=== PATIENT | female | born 1975 | race Caucasian/White ===

== ENCOUNTER 2022-05-09 12:23 | Emergency (ER) | payer OTHER, SELFPAY ==
[2022-05-09 12:34] VITALS: BP 150/93; PULSE 84; RESP 18; TEMP 36.2; O2SAT 100
--- NOTE | 2022-05-09 13:19 | ED.EAR ---
HPI - Ear Problem General Chief complaint: Ear Stated complaint: Ear Pain Time Seen by Provider: 05/09/22 13:19 Source: patient Mode of arrival: ambulatory Limitations: no limitations History of Present Illness HPI Narrative: 47-year-old female presenting for complaint of right ear pain for 2 days. States pain is severe worse with sucking. She denies associated Sinus congestion or pressure, tinnitus, dizziness, nausea, vomiting, fevers or chills. She applied a heating pad and took a muscle relaxer for symptoms. smokes half pack per day. MD Complaint: ear pain Related Data Home Medications Medication Instructions Recorded Confirmed levothyroxine 25 mcg tablet 25 mcg PO DAILY 04/29/19 05/09/22 cyclobenzaprine 10 mg tablet 10 mg PO DAILY 05/09/22 05/09/22 escitalopram oxalate 20 mg tablet 2 mg PO DAILY 05/09/22 05/09/22 losartan 100 1 tablet PO DAILY 05/09/22 05/09/22 mg-hydrochlorothiazide 25 mg tablet verapamil 240 mg tablet,extended 240 mg PO DAILY 05/09/22 05/09/22 release Allergies Allergy/AdvReac Type Severity Reaction Status Date / Time azithromycin Allergy Mild nausea/vomi Verified 05/09/22 13:06 ting meperidine Allergy Unknown Nausea and Verified 05/09/22 13:06 Vomiting Review of Systems Review of Systems: CONSTITUTIONAL: Denies malaise, chills, or fever. EYES: Denies visual changes, redness, or discharge. ENT: Denies rhinorrhea, congestion, sinus pain, and sore throat. Reports ear pain CARDIOVASCULAR: Denies chest pain, palpitations, or edema. RESPIRATORY: Denies cough or dyspnea. GASTROINTESTINAL: Denies abdominal pain, nausea, vomiting, diarrhea SKIN: Denies rash or itching. MUSCULOSKELETAL: Denies myalgia. NEUROLOGIC: Denies headache. All systems reviewed & are unremarkable except as noted in HPI and below PMFSH Past Medical History Medical History Asthma Bronchitis Hypothyroidism Surgical History Surgical History H/O inguinal hernia repair Previous section Comments At time of signature, agree with nursing past medical, surgical, social and family history. There is no relevant family history pertinent to the presenting complaint Exam Narrative: GENERAL: Well-appearing EYES: PERRLA, conjunctivae clear ENT: Nares clear. Mucous membranes moist. left TM pearly ibarra with dull light reflex; right TM with mild erythema and dull light reflex; no tragal tenderness. Oropharynx not erythematous without lesions. Tonsils not enlarged and without exudate, no drooling, no hoarseness, no trismus, uvula midline. NECK: Supple. No lymphadenopathy CHEST: lungs with expiratory wheezes HEART: Regular rate and rhythm. No murmur heard. SKIN: Warm, dry, no rash. NEURO: Alert and oriented x3. PSYCH: Normal mood and affect Course Course Emergency Course: Patient is aware of diagnosis, understands and agrees to treatment plan. Anticipatory guidance given. Patient agrees to follow-up as directed and is aware of reasons to seek care at the emergency department. Portions of this record may have been created with voice recognition software Level of Care: Express Care Visit Vital Signs Vital signs: Vital Signs Temperature 97.1 F L 05/09/22 12:34 Pulse Rate 84 05/09/22 12:34 Respiratory Rate 18 05/09/22 12:34 Blood Pressure 150/93 H 05/09/22 12:34 Pulse Oximetry 100 05/09/22 12:34 Oxygen Delivery Room Air 05/09/22 12:34 Temperature 97.1 F L 05/09/22 12:34 Pulse Rate 84 05/09/22 12:34 Respiratory Rate 18 05/09/22 12:34 Blood Pressure 150/93 H 05/09/22 12:34 Pulse Oximetry 100 05/09/22 12:34 Oxygen Delivery Room Air 05/09/22 12:34 Reviewed Medical Decision Making MDM Narrative Medical decision making narrative: Advised supportive measures and signs/symptoms to go to the ER. Patient is appropriate for outpatient treatment a
== END 2022-05-09 13:30 | disposition home or self-care (01) ==
PROVIDERS: Emergency Provider Nurse Practitioner Family; PCP Internal Medicine
DX: H66.91 Otitis media, unspecified, right ear (principal); J45.909 Unspecified asthma, uncomplicated; E03.9 Hypothyroidism, unspecified
CPT/HCPCS: 99203; G0463

== ENCOUNTER 2022-11-02 11:26 | Emergency (ER) | payer OTHER, SELFPAY ==
--- NOTE | ~2022-11-02 | XR_ITS ---
EXAMINATION: XR chest 2V 11/02/2022 11:51 INDICATION: Cough PROCEDURE: 2 view chest COMPARISON: No prior studies for comparison. FINDINGS: The lungs are clear. The cardiomediastinal silhouette is within normal limits. There are no pleural effusions. There is no pneumothorax suspected. IMPRESSION: 1: NO ACUTE CARDIOPULMONARY DISEASE. Reviewed, dictated and finalized at location B.
[2022-11-02 11:31] VITALS: BP 170/92; PULSE 88; RESP 20; TEMP 36.7; O2SAT 97
--- NOTE | 2022-11-02 11:55 | ED.URI ---
HPI - URI/Sore Throat General Chief Complaint: Upper Respiratory Infection Stated Complaint: Chest Congestin/Cough Time Seen by Provider: 11/02/22 11:55 Source: patient, RN notes reviewed and old records reviewed Mode of arrival: ambulatory Limitations: no limitations History of Present Illness HPI Narrative: 47-year-old female presents to the [facility] with complaints of chest congestion, cough for 1 week. Quit smoking 2 years ago. Wheezing noted. Denies of racing heart. Denies any swelling. Denies chest pain. No swelling. Onset (ago): week(s) (1) Related Data Home Medications Medication Instructions Recorded Confirmed escitalopram oxalate 20 mg tablet 2 mg PO DAILY 05/09/22 11/02/22 albuterol sulfate 90 mcg/actuation 1 puff inhalation DIRECTED 11/02/22 11/02/22 aerosol inhaler Allergies Allergy/AdvReac Type Severity Reaction Status Date / Time azithromycin Allergy Mild nausea/vomi Verified 11/02/22 11:45 ting meperidine Allergy Unknown Nausea and Verified 11/02/22 11:45 Vomiting Review of Systems Review of Systems: All systems reviewed & are unremarkable except as noted in HPI and below Constitutional: Constitutional: Reports no additional constitutional complaints Eyes: Eyes: Reports no additional eye complaints ENT: Reports system reviewed and no additional complaints, except as documented Cardiovascular: Cardiovascular: Reports no additional cardiovascular complaints, Denies chest pain and Denies dyspnea Respiratory: Respiratory: Reports as per HPI, Reports chest congestion, Reports cough and Reports dyspnea Gastrointestinal: Gastrointestinal: Reports no additional gastrointestinal complaints, Denies abdominal pain, Denies nausea and Denies vomiting Musculoskeletal: Musculoskeletal: Reports no additional musculoskeletal complaints Integumentary/Breasts: Skin/Breast: Reports system reviewed and no additional complaints, except as docu Neurologic: Reports system reviewed and no additional complaints, except as documented Psychiatric: Psychiatric: Reports no additional psychiatric complaints Allergic/Immunologic: Allergic/Immunologic: Reports no additional allergic/immunologic complaints [facility] Past Medical History Medical History Asthma Bronchitis Hypothyroidism Surgical History Surgical History H/O inguinal hernia repair Previous section Comments At the time of my signature, I reviewed and agree with the nursing past medical, surgical, social, and family history. There is no relevant family history pertinent to the patient complaint. Exam Const: General: cooperative, healthy appearing, comfortable, no acute distress, well developed, alert and well nourished Nutritional Appearance: well nourished and obese Orientation/consciousness: patient oriented x3 Limitations: no limitations HENMT: Head: normal to inspection Ears: hearing grossly normal bilaterally and external ears normal Face/Nose/Sinus: Normal external nose present, Normal nares present, Normal nasal mucous membranes and turbinates present and normal facial exam Face and sinus: normal facial exam Mouth: Yes Normal oral and palatal mucosa present, Yes lip normal and Yes moist mucous membranes Throat: posterior oropharynx normal and uvula midline Eyes: General: appearance normal, both eyes and all related structures Alignment and Position: alignment normal Periorbital: periorbital findings normal Pupils: Equal, round and reactive pupils present EOM: EOMs intact bilaterally Neck: Neck: normal visual inspection, full ROM, no lymphadenopathy and no meningeal signs Chest: Chest palpation & inspection: normal inspection of the chest Resp: Effort & Inspection: normal respiratory effort and able to speak in complete sentences Auscultation: no crackles, no rales, no rhonchi and wheezes throughout Card
[2022-11-02] MEDS: LEVALBUTEROL NEB 1.25 MG/3 ML INHALATION (12:11)
[2022-11-02] MEDS: IPRATROPIUM BR 0.02% INH SOLN 0.5 MG/2.5 ML VIAL INHALATION (12:11)
== END 2022-11-02 13:04 | disposition home or self-care (01) ==
PROVIDERS: Emergency Provider Nurse Practitioner; PCP Internal Medicine
DX: J40 Bronchitis, not specified as acute or chronic (principal); J45.909 Unspecified asthma, uncomplicated; E03.9 Hypothyroidism, unspecified; Z87.891 Personal history of nicotine dependence
CPT/HCPCS: 71046; 94640; 99213; G0463

== ENCOUNTER 2023-07-29 10:36 | Emergency (ER) | payer OTHER, SELFPAY ==
--- NOTE | ~2023-07-29 | XR_ITS ---
EXAMINATION: XR knee RT min 4V DATE: 07/29/2023 11:30 INDICATION: Right knee pain TECHNIQUE: Five views of the right knee were obtained on six radiographs. COMPARISON: None. FINDINGS: Alignment is normal. No fracture or osteochondral lesion. There is mild tricompartmental os teoarthritis characterized by tiny marginal osteophytes. No joint effusion/synovitis. Soft tissues a re unremarkable. IMPRESSION: 1. No acute osseous abnormality. Reviewed, dictated and finalized at location B. H PAINTER
[2023-07-29 10:42] VITALS: BP 139/98; PULSE 75; RESP 20; TEMP 36.2; O2SAT 100
--- NOTE | 2023-07-29 10:48 | ED.LOWEXIN ---
HPI - Extremity Injury (Lower) General Chief Complaint: Extremity Injury, Lower Stated Complaint: Right Knee Injury Time Seen by Provider: 07/29/23 10:53 Source: patient Mode of arrival: ambulatory Limitations: no limitations History of Present Illness HPI Narrative: 48 y/o female presented for c/o right knee pain since 99. States she woke with intense pain in the night. Pt is able to bear weight on the RLE. Reports pain mostly to the outer aspect of the knee, radiating down the leg. Reports some tingling extending to the toes. Reports yesterday she heard/felt a pop in the right knee when she bent down putting milk into refrigerator. Denied any pain after standing from that until this morning. States she has been doing intense cardio x1 hour daily 5 days/week in prep for bariatric surgery. Took ibuprofen. Related Data Home Medications Medication Instructions Recorded Confirmed atorvastatin 10 mg tablet 10 mg PO DAILY 07/29/23 07/29/23 levothyroxine 50 mcg tablet 50 mcg PO DAILY 07/29/23 07/29/23 losartan 100 1 tablet PO DAILY 07/29/23 07/29/23 mg-hydrochlorothiazide 25 mg tablet Allergies Allergy/AdvReac Type Severity Reaction Status Date / Time azithromycin Allergy Mild nausea/vomi Verified 07/29/23 10:54 ting meperidine Allergy Unknown Nausea and Verified 07/29/23 10:54 Vomiting Review of Systems Review of Systems: CONSTITUTIONAL: Denies body aches, fever, chills EYES: Denies visual changes ENT: Denies rhinorrhea, congestion CARDIOVASCULAR: Denies chest pain, palpitations, or edema. RESPIRATORY: Denies cough or dyspnea. MUSCULOSKELETAL: reports right knee pain Denies back pain, or myalgia. NEUROLOGIC: Denies weakness of extremities. All systems reviewed & are unremarkable except as noted in HPI and below PMFSH Past Medical History Medical History Asthma Bronchitis Hypothyroidism Surgical History Surgical History H/O inguinal hernia repair Previous section Comments At time of signature, I have reviewed and agree with nursing past medical, surgical, social and family history unless otherwise noted. Please see nursing chart for further information. There is no relevant family history pertinent to the presenting complaint Exam Narrative: GENERAL: Well-appearing CHEST: Speaks in full sentences. No respiratory distress. HEART: Regular rate and rhythm. Normal and equal peripheral pulses. EXTREMITIES: Patient is able to bear weight and ambulate with pain reported to the right knee. No bruising, erythema or warmth. The right knee is without obvious asymmetry or deformity when compared to the other knee. Patient is able to tolerate full extension, but reports limited ROM with flexion beyond 90?, pain with internal rotation of the foot. Reports tenderness to palpation of the patella and surrounding tenderness over the infrapatellar tendon. No effusion or ballottement. No tenderness over the proximal fibular head or quadriceps tenderness. Distal motor and neurovascular status intact. SKIN: Warm, dry, no open wounds. Capillary refill less than 3 seconds. NEURO: Alert and oriented x3. PSYCH: Normal mood and affect Course Course Emergency Course: Patient is aware of diagnosis, understands and agrees to treatment plan. Anticipatory guidance given. Patient agrees to follow-up as directed and is aware of reasons to seek care at the emergency department. Portions of this record may have been created with voice recognition software Level of Care: Express Care Visit Vital Signs Vital signs: Vital Signs Temperature 97.1 F L 07/29/23 10:42 Pulse Rate 75 07/29/23 10:42 Respiratory Rate 20 07/29/23 10:42 Blood Pressure 139/98 H 07/29/23 10:42 Pulse Oximetry 100 07/29/23 10:42 Oxygen Delivery Room Air 07/29/23 10:42 Temperature 97.1 F L
== END 2023-07-29 12:00 | disposition home or self-care (01) ==
PROVIDERS: Emergency Provider Nurse Practitioner Family; PCP Internal Medicine
DX: M25.561 Pain in right knee (principal); J45.909 Unspecified asthma, uncomplicated; E03.9 Hypothyroidism, unspecified
CPT/HCPCS: 73564; 99213; G0463

== ENCOUNTER 2024-02-26 08:30 | Emergency (ER) | payer OTHER, SELFPAY ==
[2024-02-26 08:35] VITALS: BP 157/95; PULSE 87; RESP 18; TEMP 36.3; O2SAT 97
--- NOTE | 2024-02-26 16:49 | ED.URI ---
HPI - URI/Sore Throat General Chief Complaint: Upper Respiratory Infection Stated Complaint: cough Time Seen by Provider: 02/26/24 08:49 Source: patient, RN notes reviewed and old records reviewed Mode of arrival: ambulatory Limitations: no limitations History of Present Illness HPI Narrative: 49-year-old female to Express Care with complaint of dry cough, rest the wheeze, sinus infection and bilateral ear pressure for 3 days. Patient reports she has attempted to treat at home with NyQuil. Patient denies difficulty swallowing, shortness of breath, chest pain, fever, sore throat, GI complaints, no known sick contacts. Patient resting in exam room in no acute distress. Respirations even and nonlabored. Related Data Home Medications Medication Instructions Recorded Confirmed atorvastatin 10 mg tablet 10 mg PO DAILY 07/29/23 02/26/24 levothyroxine 50 mcg tablet 50 mcg PO DAILY 07/29/23 02/26/24 losartan 100 1 tablet PO DAILY 07/29/23 02/26/24 mg-hydrochlorothiazide 25 mg tablet Allergies Allergy/AdvReac Type Severity Reaction Status Date / Time azithromycin Allergy Mild nausea/vomi Verified 02/26/24 09:11 ting meperidine Allergy Unknown Nausea and Verified 02/26/24 09:11 Vomiting Review of Systems Review of Systems: All systems reviewed & are unremarkable except as noted in HPI and below Constitutional: Constitutional: Reports no additional constitutional complaints Eyes: Eyes: Reports no additional eye complaints ENT: Reports as per HPI, Reports otalgia, Reports hoarseness and Reports nasal congestion Cardiovascular: Cardiovascular: Reports no additional cardiovascular complaints, Denies chest pain and Denies dyspnea Respiratory: Respiratory: Reports no additional respiratory complaints, Reports cough and Denies dyspnea Musculoskeletal: Musculoskeletal: Reports no additional musculoskeletal complaints Neurologic: Reports system reviewed and no additional complaints, except as documented Psychiatric: Psychiatric: Reports no additional psychiatric complaints PMF Past Medical History Medical History Asthma Bronchitis Hypothyroidism Surgical History Surgical History H/O inguinal hernia repair Previous section Comments At the time of my signature, I reviewed and agree with the nursing past medical, surgical, social, and family history. There is no relevant family history pertinent to the patient complaint. Exam Const: General: cooperative, no acute distress, alert, tired appearing and well nourished Nutritional Appearance: well nourished Orientation/consciousness: patient oriented x3 Limitations: no limitations HENMT: Head: normal to inspection Ears: external ears normal, Abnormal EAC present EAC tenderness bilateral and TM abnormal bulging bilateral, erythematous bilateral and with fluid behind the TM bilateral Face/Nose/Sinus: Normal external nose present, Normal nares present, normal facial exam, No erythema and No edema Face and sinus: normal facial exam, no erythema and no edema Mouth: Yes Normal oral and palatal mucosa present Throat: posterior oropharynx abnormal erythema and postnasal drainage Eyes: General: appearance normal, both eyes and all related structures Neck: Neck: normal visual inspection, full ROM and no meningeal signs Lymphatic: no lymphadenopathy noted and no lymphedema noted Chest: Chest palpation & inspection: normal inspection of the chest Resp: Effort & Inspection: normal respiratory effort and able to speak in complete sentences Auscultation: clear to auscultation bilaterally Cardio: Jugular venous distension: no JVD Rate: regular rate Rhythm: regular rhythm Back/Spine/Pelvis: Cervical Spine: cervical ROM normal Skin: General skin exam: normal color, no rashes or lesions noted and turgor normal Neuro: General: patient
== END 2024-02-26 10:20 | disposition home or self-care (01) ==
PROVIDERS: Emergency Provider Nurse Practitioner Family; PCP Internal Medicine
DX: H66.93 Otitis media, unspecified, bilateral (principal); J45.909 Unspecified asthma, uncomplicated; E03.9 Hypothyroidism, unspecified
CPT/HCPCS: 99213; G0463

== ENCOUNTER 2024-07-15 12:10 | Emergency (ER) | payer OTHER, SELFPAY ==
[2024-07-15 12:14] VITALS: BP 159/102; PULSE 81; RESP 16; TEMP 36.6; O2SAT 100
--- NOTE | 2024-07-15 12:31 | ED_ITS ---
HPI - Ear Problem General Chief complaint: Ear Stated complaint: Ear Pain Time Seen by Provider: 07/15/24 12:31 Source: patient, RN notes reviewed and old records reviewed Mode of arrival: ambulatory Limitations: no limitations History of Present Illness HPI Narrative: 49 year old female who presents to [facility] care with complaints of bilateral ear pressure and some discomfort with right ear worse than left since Saturday day 3 of symptoms.. Patient denies any drainage from her ears or any tinnitus or decreased hearing. Patient states that she had runny nose and a fever yesterday but none today. Patient reports that se had taken Tylenol for her discomfort MD Complaint: ear pain and other (pressure to ears) Location: bilateral Duration: constant Severity: moderate Discharge from ear: Reports no Treatment prior to arrival: other (Tylenol) Related Data Home Medications ?Medication ?Instructions ?Recorded ?Confirmed ?Last Taken ?Type atorvastatin 10 mg tablet 10 mg PO DAILY 07/29/23 02/26/24 Unknown History levothyroxine 50 mcg tablet 50 mcg PO DAILY 07/29/23 02/26/24 Unknown History losartan 100 1 tablet PO DAILY 07/29/23 02/26/24 Unknown History mg-hydrochlorothiazide 25 mg tablet liraglutide 0.6 mg/0.1 mL (18 mg/3 mg subcut 07/15/24 Unknown History mL) subcutaneous pen injector (Victoza 3-Kalin) Allergies Allergy/AdvReac Type Severity Reaction Status Date / Time azithromycin Allergy Mild nausea/vomi Verified 07/15/24 12:25 ting meperidine Allergy Unknown Nausea and Verified 07/15/24 12:25 Vomiting Review of Systems Review of Systems: CONSTITUTIONAL: Denies malaise, chills, sweats, or fever. today reports some runny nose and fever yesterday EYES: Denies visual changes, redness, or discharge. ENT: Reports some rhinorrhea, congestion, no sinus pain, positive for otalgia and no sore throat. CARDIOVASCULAR: Denies chest pain, palpitations, or edema. RESPIRATORY: Reports no cough.? Denies dyspnea. GASTROINTESTINAL: Denies abdominal pain, nausea, vomiting, diarrhea SKIN: Denies rash or itching. MUSCULOSKELETAL: Denies myalgia. NEUROLOGIC: Denies headache. All systems reviewed & are unremarkable except as noted in HPI and below PMFSH Past Medical History Medical History (Updated 07/18/24 @ 10:14 by Christine Segura NP) Hyperlipidemia Hypertension Hypothyroidism Bronchitis Asthma Surgical History Surgical History Previous section H/O inguinal hernia repair Social History Social History Smoking status: Former smoker Additional smoking assessment comments: Quit 8 months ago Alcohol intake: current Alcohol use details: rare social Substance use type: does not use Living arrangements: with family Gender identity (if verbalized by the patient): Female Comments At time of signature, agree with nursing past medical, surgical, social and family history. There is no relevant family history pertinent to the presenting complaint Exam Narrative: GENERAL: Well-appearing, well-nourished, and in no acute distress. HEAD: Normocephalic EYES: PERRLA, conjunctivae clear ENT: Nares clear, turbinates edematous and erythematous, clear discharge. Mucous membranes moist.Right TM red and bulging, Left TM pearly ibarra with dull light reflex ; no tragal tenderness. Oropharynx erythematous without lesions. Tonsils not enlarged and without exudate, no drooling, no hoarseness, no trismus, uvula midline. NECK: Supple. No lymphadenopathy CHEST: Clear to auscultation, breath sounds equal. No wheezing, rhonchi, rales, or stridor. No respiratory distress, speaks in full sentences.no cough noted SAO2 100% on room air HEART: Regular rate and rhythm. No murmur heard. SKIN: Warm, dry, no rash. NEURO: Alert and oriented x3. PSYCH: Normal mood and affect Course Course Emergency Course: Patient is aware of diagnosis, understands and agrees to treatment plan.? Antici patory guidance given.? Patient agrees to follow-up as directed and is aware of reasons to seek care at the emergency department. Portions of this record may have been created with voice recognition software Level of Care: Express Care Visit Vital Signs Vital signs: Vital Signs Temperature 36.6 C 07/15/24 12:14 Pulse Rate 81 07/15/24 12:14 Respiratory Rate 16 07/15/24 12:14 Blood Pressure 159/102 H 07/15/24 12:14 Pulse Oximetry 100 07/15/24 12:14 Temperature 36.6 C 02/05/25 12:14 Pulse Rate 81 07/15/24 12:14 Respiratory Rate 16 07/15/24 12:14 Blood Pressure 159/102 H 07/15/24 12:14 Pulse Oximetry 100 07/15/24 12:14 Reviewed Medical Decision Making Differential Diagnosis Differential Diagnosis: URI, otitis media, otitis externa,viral infection, Medical Records Medical records reviewed: Yes I reviewed the external patient's medical records. Vital Signs Vital Signs: Vital Signs Temperature 36.6 C 07/15/24 12:14 Pulse Rate 81 07/15/24 12:14 Respiratory Rate 16 07/15/24 12:14 Blood Pressure 159/102 H 07/15/24 12:14 Pulse Oximetry 100 07/15/24 12:14 Temperature 36.6 C 07/15/24 12:14 Pulse Rate 81 07/15/24 12:14 Respiratory Rate 16 07/15/24 12:14 Blood Pressure 159/102 H 07/15/24 12:14 Pulse Oximetry 100 07/15/24 12:14 reviewed Critical Care Time Critical Care Time Critical Care Time: No Discharge Plan Discharge Clinical Impression: Otitis media Qualifiers: Otitis media type: serous Chronicity: acute Laterality: right Recurrence: non- recurrent Qualified Code(s): H65.01 - Acute serous otitis media, right ear Patient Disposition: Home, Self-Care Condition: Stable Instructions: Ear Infection (GEN) Additional Instructions: Increase fluids especially juices and water [id number] cough and cold medicine of your choice for your symptoms Zyrtec Claritin or Kelsie daily Continue your inhaler/nebulizer as directed Tylenol or ibuprofen for any fever pain heat to the face 20-30 minutes 4-6 times a day for pain Salt water gargles, throat lozenges or throat sprays as desired Antibiotic as directed--finished the medication If your symptoms persist, change or worsen significantly before you can contact your personal physician then please, without delay, go to the emergency department for further evaluation. Follow-up with PCP in 7-10 days or sooner if needed Follow up with PCP soon in regards to your blood pressure which is elevated above threshold for referral. Blood pressure above 120/80 may indicate pre- hypertension. 159/102 Patient Language: Ukrainian Prescriptions: New amoxicillin-pot clavulanate 875-125 mg tablet 1 tablet PO Q12H Qty: 20 0RF Rx Instructions: Take all doses of medication intake with flu No Action albuterol sulfate 90 mcg/actuation HFA aerosol inhaler 2 puff inhalation QID PRN (Reason: shortness of breath or wheezing) Qty: 6.7 0RF (DME) Aerochamber MV Spacer See Rx Instructions .Route Qty: 1 0RF Rx Instructions: As directed liraglutide [Victoza 3-Kalin] 0.6 mg/0.1 mL (18 mg/3 mL) pen injector SUBCUT atorvastatin 10 mg tablet 10 mg PO DAILY losartan-hydrochlorothiazide 100-25 mg tablet 1 tablet PO DAILY levothyroxine 50 mcg tablet 50 mcg PO DAILY Follow-up/Referrals: Serafin,MD Ftaimah [Primary Care Provider] - Time of Disposition: 12:42 Quality [place] Coma Scale Eyes: Open Verbal: Oriented and Alert Motor: Follows Commands Constance Coma Total Score: 15
--- OUTSIDE RECORDS SUMMARY | 2024-07-15 13:18 | XMS_ITS | Data Portability ---
Author Organization [facility] IRVINGTristan Address [address] [place] [address] Care Team Providers Care [employer] Name Role Phone FATIMAH VARGHESE Primary Care Provider [phone] Assessment No assessment recorded. Plan of Treatment Reminders Order Date Submit Date Provider Last Modified By Organization Details Last Modified Time Details Appointments ANY 30 2024 02:45P M JOANNA ARCEO-NANDO Not available Not available Not available ANY 15 2024 02:00P M JOANNA Shin-Nando Not available Not available Not available Lab HbA1c (hemog lobin A1c), blood 2022 023 [facility], [address] [facility] [address], [address], 04/02/2023 08:25:01 CBC w/ auto diff 2022 023 [facility], [address] [facility] [address], [place], [address], 04/02/2023 03:08:15 CMP, serum or plasma 2022 023 [facility], [address] [facility] [address], [place], [address], 04/02/2023 03:08:14 lipid panel, serum 2022 023 [facility], [address] [facility], [facility], [place], [address], 04/02/2023 03:08:13 TSH, ultra- sensit carolyn, serum 2022 023 [facility], [address] [facility], [facility], [place], [address], 04/02/2023 08:25:02 fecal occult blood, immuno assay, stool 2022 023 [facility], [address] [facility], [facility], [place], [address], 05/16/2023 12:02:27 lipid panel, serum 2022 023 [facility], [address] [facility], [facility], [place], [address], 05/10/2023 10:17:10 CMP, serum or plasma 2022 023 [facility], [address] [facility], [facility], [place], [address], 05/10/2023 10:17:09 CBC w/ auto diff 2022 023 [facility], [address] [facility], [facility], [place], [address], 05/10/2023 10:17:09 TSH, ultra- sensit carolyn, serum 2022 023 [facility], [address] [facility], [facility], [place], [address], 05/10/2023 10:17:08 lipid panel, serum 2023 024 [facility], [address] [facility], [facility], [place], [address], 07/03/2024 08:06:31 CMP, serum or plasma 2023 024 jschulterma [facility], [address] [facility], [facility], [place], [address], 07/03/2024 08:06:31 CBC w/ auto diff 2023 024 jschulterma [facility], [address] [facility], [place], [address], 07/03/2024 08:06:31 fecal occult blood, immuno assay, stool 2023 024 [facility], [address] [facility], [place], [address], 02/04/2024 09:29:49 Referral None record ed. Procedures None record ed. Surgeries None record ed. Imaging MAMMO, screen ing, digita l, bilate ral 2023 024 loidaebfranklinit e [facility] Scheduling, [address] [place], [address], 07/03/2024 15:19:04 Medication Orders losart an 100 mg-hyd rochlo rothia zide 25 mg tablet 2022 023 [facility][id number], [address], [place], [place], [id number], 01/18/2023 08:59:35 levoth yroxin e 50 mcg tablet 2022 023 [facility] #[id number], [address], [place], [place], [id number], 01/18/2023 14:08:04 amoxic illin 500 mg tablet 2022 023 [facility] #55722, [address], [place], [place], [id number], 05/10/2023 09:56:54 atorva statin 10 mg tablet 2022 024 [facility] #73202, [address], [place], [place], [id number], 12/27/2023 09:03:08 Victoz a 3-Kalin 0.6 mg/0.1 mL (18 mg/3 mL) subcut aneous pen inject or 2023 [facility], [address] [place], [place], [id number], 12/27/2023 10:04:40 atorva statin 20 mg tablet 2023 024 [facility][id number], [address] , [place], [place], [id number], 12/27/2023 09:02:19 Patient TargetsNo targets recorded. Patient Instructions Encounter Date Encounter Id Patient Instructions Last Modified By Organization Details Last Modified Time 01/18/2023 [id number] A healthy lifestyle: care instructions nsuthan Not available 01/18/2023 08:56:24 learning about mindfulness for stress nsuthan Not available 01/18/2023 08:56:24 f/u in 1 month with labs nsuthan Not available 01/18/2023 08:59:28 04/01/2023 [id number] A healthy lifestyle: care instructions nsuthan Not available 04/01/2023 15:52:07 stool kit/labs /needs f/u for chronic issues -in a month nsuthan Not available 04/01/2023 12:12:37 05/10/2023 [id number] A healthy lifestyle: care instructions nsuthan Not available 05/10/2023 10:15:43 f/u in 3 month nsuthan Not available 1 07/11/2022 10:15:41 12/27/2023 [id number] stool kit /f/u in 3month nsuthan Not available 12/27/2023 09:06:17 05/28/2024 [id number] [facility] 05/28/2024 15:56:50 Reason for Referral None Reported. Results Created Date Observation Date Name Description Value Unit Range Abnormal Flag Note LastModifiedBy Organization Detail LastModifiedTime 12/21/1912/22/2022 IGP, APTIM A HPV, RFX 16/18 ,45 HPV aptima Negati ve negati ve This nucle ic acid ampli ficat ion test detec ts fourt een high- risk HPV types (16,1 8,31, 33,35 ,39,4 5,51, 52,56 ,58,5 9,66, 68) witho ut diffe renti ation . Not Available [facility] ([facility]) [address] [facility], [place], [address], 12/24/2022 11:15:01 12/21/19 23 12/24/2022 IGP, APTIM A HPV, RFX 16/18 ,45 diagnosis: Maximiliano wren NEGAT CAROLYN FOR INTRA EPITH ELIAL SANDY N OR ALBINA DELEON . Not Available [facility] ([facility]) [address] [facility], [place], [address], 12/24/2022 11:15:01 12/21/1912/24/2022 IGP, APTIM A HPV, RFX 16/18 ,45 specimen adequacy: Maximiliano wren Satis facto ry for evalu ation . No endoc ervic al compo nent is ident ified . Not Available [facility] ([facility]) [address] [facility], [place], [address], 12/24/2022 11:15:01 12/21/19 23 12/24/2022 IGP, APTIM A HPV, RFX 16/18 ,45 clinician provided ICD10: Maximiliano wren Z01.4 19 Not Available [facility] ([facility]) [address] [place], [address], 12/24/2022 11:15:01 12/21/1912/24/2022 IGP, APTIM A HPV, RFX 16/18 ,45 performed by: Maik Vogel (ASCP ) Not Available [facility] ([facility]) [address] [place], [address], 12/24/2022 11:15:01 12/21/19 23 12/24/2022 IGP, APTIM A HPV, RFX 16/18 ,45 . . Not Available [facility] ([facility]) [address] [place], [address], 12/24/2022 11:15:01 12/21/19 23 12/24/2022 IGP, APTIM A HPV, RFX 16/18 ,45 note: Commen t The Pap smear is a scree srinivas test desevens leno to aid in the detec tion of sanjuana ligna nt and malig nant condi tions of the uteri ne cervi x. It is not a diagn ostic proce dure and shoul d not be used as the sole means of detec ting cervi noah cance r. Both false -posi tive and false -nega tive repor ts do occur . Not Available [facility] ([facility]) [address] [facility], [place], [address], 12/24/2022 11:15:01 12/21/19 23 12/24/2022 IGP, APTIM A HPV, RFX 16/18 ,45 test methodology: Commen t This liqui d based ThinP rep(R ) pap test was scree leno with the use of an image guide eri chacko. Not Available [facility] ([facility]) [address] [facility], [place], [address], 12/24/2022 11:15:01 12/21/19 23 12/24/2022 IGP, APTIM A HPV, RFX 16/18 ,45 HPV genotype reflex Commen t Crite mariam not met, HPV Genot ype not perfo rmed. Not Available [facility] ([facility]) [address] [place], [address], 12/24/2022 11:15:01 04/01/20 23 04/01/2023 LIPID PANEL cholesterol, total 233 mg/dL 100-19 9 above high normal Not Available [facility] [address] [place], [address], 04/02/2023 03:08:13 04/01/2004/01/2023 LIPID PANEL triglyceride s 156 mg/dL 0-149 above high normal Not Available [facility] Department [address] [place], [address], 04/02/2023 03:08:13 04/01/2004/01/2023 LIPID PANEL HDL cholesterol 36 mg/dL 40-999 below low normal Not Available [facility] Department [address] [place], [address], 04/02/2023 03:08:13 04/01/2004/01/2023 LIPID PANEL VLDL cholesterol noah 31 mg/dL 5-40 Not Available [facility] Department [address] [place], [address], 04/02/2023 03:08:13 04/01/2004/01/2023 LIPID PANEL LDL chol calc (nih) 186 mg/dL 0-99 above high normal Not Available [facility] Department [address] [place], [address], 04/02/2023 03:08:13 04/01/2004/01/2023 COMP. METAB OLIC PANEL (14) glucose 85 mg/dL 70-99 Not Available [facility] Department [address] [place], [address], 04/02/2023 03:08:14 04/01/2004/01/2023 COMP. METAB OLIC PANEL (14) BUN 12 mg/dL 6-24 Not Available [facility] Department [address] [place], [address], 04/02/2023 03:08:14 04/01/2004/01/2023 COMP. METAB OLIC PANEL (14) creatinine 0.78 mg/dL 0.76-1 .27 Not Available [facility] Department [address] [place] [address], [address], 04/02/2023 03:08:14 04/01/2004/01/2023 COMP. METAB OLIC PANEL (14) eGFR 95 >=60 Units for eGFR value s are mL/mi n/1.7 3 The eGFR Calcu latio n has not been valid ated for patie nts under the age of 18. If test resul ts are displ ayed for a patie nt under the age of 18, disre simon that value . Not Available [facility] Department [address] [place] [address], [address], 04/02/2023 03:08:14 04/01/2004/01/2023 COMP. METAB OLIC PANEL (14) BUN/creatini ne ratio 15 -23 Not Available [facility] Department [address] [place] [address], [address], 04/02/2023 03:08:14 04/01/2004/01/2023 COMP. METAB OLIC PANEL (14) sodium 138 mmol/ L 134-14 4 Not Available [facility] Department [address] [place] [address], [address], 04/02/2023 03:08:14 04/01/2004/01/2023 COMP. METAB OLIC PANEL (14) potassium 4.7 mmol/ L 3.5-5. 2 Not Available [facility] Department [address] [place] [address], [address], 04/02/2023 03:08:14 04/01/2004/01/2023 COMP. METAB OLIC PANEL (14) chloride 97 mmol/ L 96-106 Not Available [facility] [address] [place] [address], [address], 04/02/2023 03:08:14 04/01/2004/01/2023 COMP. METAB OLIC PANEL (14) carbon dioxide, total 28 mmol/ L 20-29 Not Available [facility] Department [address] [place] [address], [address], 04/02/2023 03:08:14 04/01/2004/01/2023 COMP. METAB OLIC PANEL (14) calcium 9.8 mg/dL 8.7-10 .2 Not Available [facility] Department [address] [place], [address], 04/02/2023 03:08:14 04/01/2004/01/2023 COMP. METAB OLIC PANEL (14) protein, total 7.5 g/dL 6.0-8. 5 Not Available [facility] Department [address] [place], [address], 04/02/2023 03:08:14 04/01/2004/01/2023 COMP. METAB OLIC PANEL (14) albumin 4.2 g/dL 3.9-4. 9 Not Available [facility] Department [address] [place], [address], 04/02/2023 03:08:14 04/01/2004/01/2023 COMP. METAB OLIC PANEL (14) globulin, total 3.3 g/dL 1.5-4. 5 Not Available [facility] Department [address] [place], [address], 04/02/2023 03:08:14 04/01/2004/01/2023 COMP. METAB OLIC PANEL (14) A/G ratio 1.0 1.2-2. 2 below low normal Not Available [facility] Department [address] [place], [address], 04/02/2023 03:08:14 04/01/2004/01/2023 COMP. METAB OLIC PANEL (14) bilirubin, total 0.3 mg/dL 0.0-1. 2 Not Available [facility] Department [address] [place], [address], 04/02/2023 03:08:14 04/01/2004/01/2023 COMP. METAB OLIC PANEL (14) alkaline phosphatase 143 IU/L 44-121 above high normal Not Available [facility] Department [address] [place], [address], 04/02/2023 03:08:14 04/01/2004/01/2023 COMP. METAB OLIC PANEL (14) AST (SGOT) 19 IU/L 0-40 Not Available [facility] Department [address] [place], [address], 04/02/2023 03:08:14 04/01/2004/01/2023 COMP. METAB OLIC PANEL (14) ALT (SGPT) 19 IU/L 0-32 Not Available [facility] Department [address] [place], [address], 04/02/2023 03:08:14 04/01/2004/01/2023 CBC WITH DIFFE RENTI AL/PL ATELE T WBC 11.7 x10e3 /uL 3.4-10 .8 above high normal Not Available [facility] Department [address] [place], [address], 04/02/2023 03:08:15 04/01/2004/01/2023 CBC WITH DIFFE RENTI AL/PL ATELE T RBC 5.04 x10e6 /uL 3.77-5 .28 Not Available [facility] Department [address] [place], [address], 04/02/2023 03:08:15 04/01/2004/01/2023 CBC WITH DIFFE RENTI AL/PL ATELE T hemoglobin 13.4 g/dL 11.1-1 5.9 Not Available [facility] Department [address] [place], [address], 04/02/2023 03:08:15 04/01/2004/01/2023 CBC WITH DIFFE RENTI AL/PL ATELE T hematocrit 44.1 % 34.0-4 6.6 Not Available [facility] Department [address] [place], [address], 04/02/2023 03:08:15 04/01/2004/01/2023 CBC WITH DIFFE RENTI AL/PL ATELE T MCV 88 fL 79-97 Not Available [facility] Department [address] [place], [address], 04/02/2023 03:08:15 04/01/2004/01/2023 CBC WITH DIFFE RENTI AL/PL ATELE T MCH 26.6 pg 26.6-3 3.0 Not Available [facility] [address] [place], [address], 04/02/2023 03:08:15 04/01/2004/01/2023 CBC WITH DIFFE RENTI AL/PL ATELE T MCHC 30.4 g/dL 31.5-3 5.7 below low normal Not Available [facility] Department [address] [place], [address], 04/02/2023 03:08:15 04/01/2004/01/2023 CBC WITH DIFFE RENTI AL/PL ATELE T RDW 14.9 % 11.5-1 4.5 above high normal Not Available [facility] Department [address] [place], [address], 04/02/2023 03:08:15 04/01/2004/01/2023 CBC WITH DIFFE RENTI AL/PL ATELE T platelets 420 x10e3 /uL 150-45 0 Not Available [facility] Department [address] [place], [address], 04/02/2023 03:08:15 04/01/2004/01/2023 CBC WITH DIFFE RENTI AL/PL ATELE T neutrophils 66 % notest b. Not Available [facility] Department [address] [place], [address], 04/02/2023 03:08:15 04/01/2004/01/2023 CBC WITH DIFFE RENTI AL/PL ATELE T lymphs 27 % notest b. Not Available [facility] [address] [place], [address], 04/02/2023 03:08:15 04/01/2004/01/2023 CBC WITH DIFFE RENTI AL/PL ATELE T monocytes 5 % notest b. Not Available [facility] Department [address] [place], [address], 04/02/2023 03:08:15 04/01/2004/01/2023 CBC WITH DIFFE RENTI AL/PL ATELE T eos 2 % notest b. Not Available [facility] Department [address] [place], [address], 04/02/2023 03:08:15 04/01/2004/01/2023 CBC WITH DIFFE RENTI AL/PL ATELE T basos 0 % notest b. Not Available [facility] [address] [place], [address], 04/02/2023 03:08:15 04/01/2004/01/2023 CBC WITH DIFFE RENTI AL/PL ATELE T neutrophils (absolute) 7.7 x10e3 /uL 1.4-7. 0 above high normal Not Available [facility] Department [address] [place], [address], 04/02/2023 03:08:15 04/01/2004/01/2023 CBC WITH DIFFE RENTI AL/PL ATELE T lymphs (absolute) 3.2 x10e3 /uL 0.7-3. 1 above high normal Not Available [facility] [address] [place], [address], 04/02/2023 03:08:15 04/01/2004/01/2023 CBC WITH DIFFE RENTI AL/PL ATELE T monocytes(ab solute) 0.5 x10e3 /uL 0.1-0. 9 Not Available [facility] Department [address] [place], [address], 04/02/2023 03:08:15 04/01/2004/01/2023 CBC WITH DIFFE RENTI AL/PL ATELE T eos (absolute) 0.2 x10e3 /uL 0.0-0. 4 Not Available [facility] Department [address] [place], [address], 04/02/2023 03:08:15 04/01/2004/01/2023 CBC WITH DIFFE RENTI AL/PL ATELE T baso (absolute) 0.1 x10e3 /uL 0.0-0. 2 Not Available [facility] Department [address] [place] [address], [address], 04/02/2023 03:08:15 04/01/2004/01/2023 CBC WITH DIFFE RENTI AL/PL ATELE T immature granulocytes 0.3 % notest b. Not Available [facility] Department [address] [place], [address], 04/02/2023 03:08:15 04/01/2004/01/2023 CBC WITH DIFFE RENTI AL/PL ATELE T immature grans (abs) 0.0 x10e3 /uL 0.0-0. 1 Not Available [facility] Department [address] [place], [address], 04/02/2023 03:08:15 04/01/2004/01/2023 CBC WITH DIFFE RENTI AL/PL ATELE T NRBC 0 % 0-0 Not Available [facility] Department [address] [place] [address], [address], 04/02/2023 03:08:15 04/01/2004/02/2023 HEMOG LOBIN A1C hemoglobin A1C 5.8 % 4.8-5. 6 above high normal Predi abete s: 5.7 - 6.4 Diabe anuja: >6.4 Glyce odessa contr ol for adult s with diabe anuja: <7.0 Not Available [facility] ([facility]) [address] [facility], [place], [address], 04/02/2023 08:25:01 04/01/2004/02/2023 TSH TSH 4.750 uIU/m L 0.450- 4.500 above high normal Not Available [facility] ([facility]) [address] [facility], [place], [address], 04/02/2023 08:25:02 07/29/19 24 07/29/2023 XR, knee No observ ation record ed. [facility] [address], [place], [address], 07/30/2023 13:03:16 Result Notes None recorded. Problems Name Problem SNOMED Code Status Onset Date Resolution Date Notes Provider Name and Address Organization Details Recorded Time Smoker 63398910 Active 2018 quit in 2019 Fatimah Varghese MD Attn: Drew garcia,[address] [place], [address], [facility] 1 09:47:39 Obesity 722800492 Active 2018 seeing bariatric surgeon Fatimah Varghese MD Attn: Drew garcia,[address] [place], [address], [facility] - [facility] 3 12:01:45 Umbilica l hernia 850187839 Active 2018 s/p sx 09/16/18 Fatimah Varghese MD Attn: Drew garcia,[address] [place], [address], [facility] - [facility] 2 10:38:27 Mixed anxiety and depressi ve disorder 759692968 Active 2018 Fatimah Varghese MD Attn: Drew garcia[address] [facility] [place], [address], [place] - [facility] 2 10:38:27 Hypothyr oidism 15254089 Active 2018 Fatimah Varghese MD Attn: Drew garcia,[address] [facility], [place], [address], [place] - [facility] 2 10:38:27 Elevated blood-pr essure reading without diagnosi s of hyperten juan 469760727 Completed 201807/13/2019 Fatimah Varghese MD Attn: Drew garcia,[address] [facility], [place], [address], [place] [facility] 0 11:54:49 [facility] hyperten juan 19416341 Active 2019 Fatimah Varghese MD Attn: Drew garcia,[address] [facility], [place], [address], [place] [facility] 2 10:38:27 Mixed hyperlip idemia 442795811 Active 2021 Fatimah Varghese MD Attn: Drew garcia,[address] [facility], [place], [address], [place] [facility] 3 08:52:23 Postcoit al bleeding 52046046 Active 2015 Eunice tolbert, [place] - [facility] 6 17:03:21 Problem Notes None recorded. Procedures Surgical History Date Name Laterality Status Provider Name and Address Organization Details Recorded Time 3 endoscopy completed SHA Wei [place] - [facility] 05/10/2023 10:00:46 3 Date of Last Pap Smear completed Wendy May RN [place] - [facility] 12/24/2022 11:19:51 9 IUD Removal completed ANTONINA Kessler Attn: Accounting,[address] [facility], [place], [address], [place] - [facility] 07/11/2018 11:16:46 9 IUD Insertion completed ANTONINA Kessler Attn: Accounting,[address] [facility], [place], [address], [place] [facility] 07/11/2018 11:16:37 8 Caesarean Section completed Eunice Andrademons [place] - [facility] 05/21/2016 17:07:10 8 Caesarean Section completed Eunice Andrademons [place] - [facility] 05/21/2016 17:06:40 Other completed Sangeetha Sesay [place] - [facility] 10/09/2019 11:09:22 Imaging Results Imaging Date Name Status LastModified by Organiz ation Details LastModified Time 07/29/2023 XR, knee completed bak[facility] [address], [place], [address], 07/30/2023 13:03:16 Procedure Notes None recorded. Medical Equipment None Reported. Allergies Allergen ID Allergen Name Allergen Category Reaction Reaction Severity Criticality Documentation Date Start Date Code Code System Note Provider Name and Address Organization Details Recorded Time 046266 prednison e medicatio n facial swelling severe Not available 10/07/2020 8640 RxNorm tongu e swell ing, hard to breat he Not Available Not Available Not Available 09113 Demerol medicatio n vomiting severe Not available 05/21/2016 52920 1 RxNorm Not Available Not Available Not Available 35179 azithromy yenny medicatio n vomiting severe Not available 05/21/2016 43088 RxNorm Not Available Not Available Not Available Medications Name Sig Start Date Stop Date Status Note LastModified by Organization Details LastModified Time cyclobenz aprine 10 mg tablet TAKE 1 TABLET BY MOUTH EVERY DAY AT BEDTIME 01/18 completed Not Available Not Available Not Available Mirena 21 mcg/24 hr (up to 8 years) 52 mg intrauter ine device Take 1 device by intraute rine route. 2018 active Not Available Not Available Not Avai lable bupropion HCl SR 150 mg tablet,12 hr sustained -release TAKE 1 TABLET BY MOUTH TWICE DAILY active Not Available Not Available No t Available prednison e 10 mg tablet 10/07 completed not taking- allergic Not Available Not Available Not Available atorvasta tin 20 mg tablet TAKE 1 TABLET BY MOUTH EVERY DAY 2024 active Not Available Not Available Not Avai lable trazodone 50 mg tablet TAKE 1 TABLET BY MOUTH EVERY DAY AT BEDTIME 11/24 completed not taking Not Available Not Available Not Available cetirizin e 10 mg tablet TAKE 1 TABLET BY MOUTH EVERY DAY active Not Available Not Available No t Available atorvasta tin 10 mg tablet TAKE 1 TABLET BY MOUTH EVERY DAY 2024 active Not Available Not Available Not Avai lable ibuprofen 800 mg tablet TAKE 1 TABLET BY MOUTH THREE TIMES DAILY NEEDED FOR PAIN active Not Available Not Available No t Available fluconazo le 150 mg tablet Take 1 tablet every day by oral route prn vaginal candidia sis. 11/18 completed Not Available Not Available Not Available benzonata te 200 mg capsule 05/13 completed Not Available Not Available Not Available valacyclo vir 1 gram tablet TAKE 1 TABLET BY MOUTH EVERY 12 HOURS FOR 1 DAY 12/26 completed Not Available Not Available Not Available hydrocodo ne 5 mg-acetam inophen 325 mg tablet 11/18 completed Not Available Not Available Not Available fluconazo le 200 mg tablet 11/18 completed Not Available Not Available Not Available meloxicam 15 mg tablet TAKE 1 TABLET BY MOUTH EVERY DAY WITH MEALS 01/18 completed Not Available Not Available Not Available ondansetr on HCl 4 mg tablet Take 1 tablet 3 times a day by oral route as needed. 02/11 completed not taking Not Available Not Available Not Available prednison e 20 mg tablet TAKE 2 TABLETS BY MOUTH DAILY FOR 3 DAYS THEN TAKE 1 TABLET BY MOUTH DAILY FOR 3 DAYS 12/20 completed Not Available Not Available Not Available verapamil ER (SR) 180 mg tablet,ex tended release TAKE 1 TABLET BY MOUTH EVERY DAY 03/30 completed Not Available Not Available Not Available metronida zole 500 mg tablet Take 1 tablet twice a day by oral route after meals for 7 days. 11/18 completed Not Available Not Available Not Available hydroxyzi ne HCl 50 mg tablet Take 1 tablet every day by oral route at bedtime. 05/13 completed Not Available Not Available Not Available valacyclo vir 500 mg tablet Take 1 tablet twice a day by oral route for 5 days. 11/18 completed Not Available Not Available Not Available sulfameth oxazole 800 mg-trimet hoprim 160 mg tablet 11/18 completed Not Available Not Available Not Available doxycycli ne monohydra te 100 mg tablet TAKE 1 TABLET BY MOUTH TWICE DAILY 12/20 completed Not Available Not Available Not Available amoxicill in 500 mg tablet TAKE 1 TABLET BY MOUTH EVERY 8 HOURS FOR 7 DAYS 05/10 completed Not Available Not Available Not Available levothyro xine 25 mcg tablet TAKE 1 TABLET BY MOUTH EVERY DAY active Not Available Not Available No t Available losartan 100 mg-hydroc hlorothia zide 25 mg tablet TAKE 1 TABLET BY MOUTH EVERY DAY-need s apt 2023 active Not Available Not Available Not Avai lable amoxicill in 875 mg tablet TAKE 1 TABLET BY MOUTH EVERY 12 HOURS active Not Available Not Available No t Available levothyro xine 50 mcg tablet TAKE 1 TABLET BY MOUTH EVERY DAY 2023 active Not Available Not Available Not Avai lable triamcino lone acetonide 0.1 % topical ointment APPLY TOPICALL Y TO THE AFFECTED AREA TWICE DAILY active Not Available Not Available No t Available buspirone 10 mg tablet TAKE 1 TABLET BY MOUTH TWICE DAILY NEEDED 01/18 completed Not Available Not Available Not Available prednison e 50 mg tablet 11/18 completed Not Available Not Available Not Available triamtere ne 37.5 mg-hydroc hlorothia zide 25 mg tablet TAKE 1 TABLET BY MOUTH EVERY DAY 12/23 completed Not Available Not Available Not Available verapamil ER (SR) 240 mg tablet,ex tended release TAKE 1 TABLET BY MOUTH EVERY DAY 04/01 completed not taking Not Available Not Available Not Available epinephri ne 0.3 mg/0.3 mL injection , auto-inje ctor ADMINIST ER 0.3 ML IN THE MUSCLE 1 TIME FOR UP TO 1 DAY NEEDED FOR ANAPHYLA XIS 05/10 completed Not Available Not Available Not Available ibuprofen 600 mg tablet TAKE 1 TABLET BY MOUTH EVERY DAY 01/18 completed Not Available Not Available Not Available methylpre dnisolone 4 mg tablets in a dose pack FOLLOW PACKAGE DIRECTIO NS 12/26 completed Not Available Not Available Not Available albuterol sulfate HFA 90 mcg/actua tion aerosol inhaler INHALE 2 PUFFS FOUR TIMES DAILY NEEDED FOR SHORTNES S OF BREATH OR WHEEZING active Not Available Not Available No t Available fluticaso ne propionat e 50 mcg/actua tion nasal spray,robin pension 10/08 completed Not Available Not Available Not Available hydroxyzi ne pamoate 25 mg capsule TAKE 1 CAPSULE BY MOUTH THREE TIMES DAILY NEEDED FOR ITCHING 10/07 completed not taking Not Available Not Available Not Available bupropion HCl SR 200 mg tablet,12 hr sustained -release Take 1 tablet twice a day by oral route. 03/02 completed taper and disconti nue ( sweating ), pt not taking Not Available Not Available Not Available escitalop henrry 10 mg tablet TAKE 2 TABLETS BY MOUTH EVERY DAY 05/13 completed Not Available Not Available Not Available escitalop henrry 20 mg tablet TAKE 1 TABLET BY MOUTH EVERY DAY 01/18 completed Not Available Not Available Not Available aripipraz ole 5 mg tablet TAKE 1 TABLET BY MOUTH EVERY DAY 02/11 completed not taking Not Available Not Available Not Available losartan 100 mg-hydroc hlorothia zide 12.5 mg tablet TAKE 1 TABLET BY MOUTH EVERY DAY 05/26 completed Not Available Not Available Not Available hydrochlo rothiazid e 12.5 mg tablet Take 1 tablet every day by oral route. 07/13 completed Not Available Not Available Not Available Victoza 3-Kalin 0.6 mg/0.1 mL (18 mg/3 mL) subcutane ous pen injector ADMINIST ER 0.6 MG UNDER THE SKIN EVERY DAY active Not Available Not Available No t Available Compact Space Chamber-L rg Mask USE DIRECTED 05/10 completed Not Available Not Available Not Available TRUEplus Pen Needle 31 gauge x 1/4 USE DIRECTED DAILY WITH INJECTIO NS active Not Available Not Available No t Available Ozempic 0.25 mg or 0.5 mg (2 mg/1.5 mL) subcutane ous pen injector Inject 0.5 mg every week by subcutan eous route. 01/18 completed Not Available Not Available Not Available Vitals Date Recorded Body height Body mass index (BMI) Body weight Heart rate Respiratory rate Body temperature Oxygen saturation Oxygen saturation in Arterial blood by Pulse oximetry Systolic blood pressure Diastolic blood pressure Provider Name and Address Organization Details Last Updated DateTime 3 168.28 cm 52.4 kg/m2 241826. 7 g 88 /min 16 /min 97.7 [degF] 96 % 96 % 144 mm[Hg] 94 mm[Hg] Erica Layne [facility] 3 08:37:22 Date Recorded Body height Body mass index (BMI) Body weight Heart rate Respiratory rate Body temperature Oxygen saturation Oxygen saturation in Arterial blood by Pulse oximetry Systolic blood pressure Diastolic blood pressure Provider Name and Address Organization Details Last Updated DateTime 3 168.28 cm 51.2 kg/m2 653485. 4 g 91 /min 14 /min 97.8 [degF] 96 % 96 % 126 mm[Hg] 86 mm[Hg] Lilly Carolina MA [facility] 3 11:59:58 Date Recorded Body height Body mass index (BMI) Body weight Heart rate Respiratory rate Body temperature Oxygen saturation Oxygen saturation in Arterial blood by Pulse oximetry Systolic blood pressure Diastolic blood pressure Provider Name and Address Organization Details Last Updated DateTime 3 168.28 cm 50.1 kg/m2 833508. 41 g 85 /min 16 /min 97 [degF] 99 % 99 % 133 mm[Hg] 86 mm[Hg] SHA Wei [facility] 3 10:01:48 Date Recorded Body height Body mass index (BMI) Body weight Heart rate Body temperature Respiratory rate Oxygen saturation Oxygen saturation in Arterial blood by Pulse oximetry Systolic blood pressure Diastolic blood pressure Provider Name and Address Organization Details Last Updated DateTime 4 168.28 cm 50.8 kg/m2 519691. 22 g 91 /min 98.1 [degF] 16 /min 95 % 95 % 139 mm[Hg] 95 mm[Hg] Elena Mckeon MA [facility] 4 08:41:22 Date Recorded Body height Body mass index (BMI) Body weight Systolic blood pressure Diastolic blood pressure Provider Name and Address Organization Details Last Updated DateTime 05/28/2024 168.28 cm 50.4 kg/m2 154978.8 8 g 168 mm[Hg] 97 mm[Hg] Ellen Silverman MA [facility] 4 15:38:34 Social History Question Answer Notes LastModified by Organizat ion Details LastModified Time Tobacco Smoking Status Former Smoker quit 2018- 08/04/21 states she smoked 3 cigs one day but did not smoke again Erica Layne, [place] [facility], [place] - [facility] 05/10/2023 09:59:07 Do You Have An Advance Directive? No Information not available 10/31/2020 What Is Your Level Of Alcohol Consumption? Occasional Information not available 04/01/2023 Are You Blind Or Do You Have Difficulty Seeing? Yes Glasses Information not available 04/01/2023 What Is Your Level Of Caffeine Consumption? Moderate Coffee Information not available 05/10/2023 How Much Tobacco Do You Chew? None [email or web address] Information not available 08/08/2018 In The 14 Days Before Symptom Onset, Have You Had Close Contact With A Laboratory-conf irmed COVID-19 While That Case Was Ill? No [email or web address] Information not available 10/21/2020 In The 14 Days Before Symptom Onset, Have You Had Close Contact With A Person Who Is Under Investigation For COVID-19 While That Person Was Ill? No Information not available 10/09/2019 Have You Been To An Area Known To Be High Risk For COVID-19? No Works At [employer] Information not available 06/28/2020 Are You Currently Employed? Yes [email or web address] Information not available 07/22/2020 Are You Deaf Or Do You Have Serious Difficulty Hearing? No [email or web address] Information not available 07/22/2020 What Type Of Diet Are You Following? REGULAR Low Carb- Exercise Instructor Information not available 04/01/2023 Which Illicit Or Recreational Drugs Have You Used? None Information not available 08/08/2018 Do You Or Have You Ever Used E-cigarettes Or Vape? Former User Of Electronic Cigarettes 0% Nicotine Information not available 05/10/2023 Education 12 [email or web address] Informati on not available 08/08/2018 What Is The Highest Grade Or Level Of School You Have Completed Or The Highest Degree You Have Received? [id number] Some College Information not available 10/31/2020 What Is Your Occupation? [employer] Information not available 05/10/2023 Are There Any Guns Present In Your Home? No Information not available 08/08/2018 Hard Of Hearing Or Deaf In One Or Both Ears? 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 05/28/2024 Information not available 05/28/2024 Performs Monthly Self-breast Exam? Yes Information not available 08/08/2018 What Is Your Relationship Status? Information not available 12/29/2021 Do You Use Your Seat Belt Or Car Seat Routinely? Yes [email or web address] Information not available 07/22/2020 Seat Belts Used Routinely Yes Information not available 08/08/2018 Smoke Alarm In Home Yes Information not available 08/08/2018 Do You Have Smoke And Carbon Monoxide Detectors In Your Home? Yes [email or web address] Information not available 07/22/2020 At What Age Did You Start Smoking Tobacco? 21 [email or web address] Information not available 09/03/2018 Do You Or Have You Ever Used Smokeless Tobacco? Never Used Smokeless Tobacco Information not available 05/13/2019 How Much Tobacco Do You Smoke? 0.25 PPD 2-3 Daily [email or web address] Information not available 01/18/2023 General Stress Level Low High W/ Remote School Information not available 06/28/2020 Do You Feel Stressed (tense, Restless, Nervous, Or Anxious, Or Unable To Sleep At Night)? [id number] [email or web address] Information not available 07/22/2020 Do You Use Any Illicit Or Recreational Drugs? Yes Edibles Sometimes Information not available 12/29/2021 Do You Use Sunscreen Routinely? Yes Information not available 08/08/2018 Has Tobacco Cessation Counseling Been Provided? Yes Information not available 04/01/2023 On What Date Was Tobacco Cessation Counseling Provided? 05/28/2024 Information not available 05/28/2024 Do You Or Have You Ever Used Any Other Forms Of Tobacco Or Nicotine? Yes Information not available 04/01/2023 Sex: Female Functional Status Question Answer Note LastModified by Organization D etails LastModified Time Are you able to care for yourself? Yes [email or web address] Information not available 07/22/2020 What is your exercise level? Moderate [email or web address] Information not available 08/04/2021 Mental Status None recorded. Family History Relationship Description Onset Age of this Age Resolved Age Notes LastModified by Organization Details LastModified Time Father Malignant tumor of colon passed italo vasquez Not available 08/08/2018 14:06:50 Sister Diabetes mellitus italo vasquez Not available 08/08/2018 14:06:55 Medical History Condition Response Coronary Artery Disease N Other N High Blood Pressure Y Atrial Fibrillation N Kidney or Bladder Problems N Thyroid Problems N GI Problems N Depression N COPD N Blood Clots N Skin Problems N Anemia N Heart Attack ([place]) N Anxiety Disorder N Diabetes N Muscle, Joint, or Bone Problems N Seizures/Epilepsy N Acid Reflux (GERD) N Cancer N Stroke N Asthma Y Allergies N High Cholesterol N Hepatitis N Liver Disease N Headaches Y Heart Failure N Osteoporosis N Gynecological History Statement/Question Response Date of LMP Menses Monthly N Date of Last Pap Smear 12/20/2022 Sexual Problems? N Age at Menarche 15 Current Control Method IUD Age at First Child 20 LMP Unknown Obstetrics History GPAL:G 3 P 0 3 0 2 Type Value Premature 3 Living 2 Total 3 Immunizations Vaccine Type Date Status Note Provider Nam e and Address Organization Details Recorded Time SARS-COV-2 (COVID-19) vaccine, UNSPECIFIED 09/13/2020 completed CHRISSY Jones, [place] - [facility] 10/31/2020 12:06:44 Past Encounters Encounter ID Performer Location Encounter Start Date Encounter Closed Date Diagnosis/Indication Diagnosis SNOMED-CT Code Diagnosis ICD10 Code Diagnosis Note [id number] Julianna Kraus [facility] (HETAL 122) [address] [facility] [address] [place] [address] 05/21/2016 16:51:21 05/22/2016 10:19:28 Postcoital bleeding 58846956 N93.0 [id number] [facility] [address] [facility] [address] [place] [address] 07/11/2018 10:37:43 07/11/2018 12:28:38 Insertion of intrauterine contraceptive device 55312974 Z30.430 Removal of subcutaneous contraceptive 081795987 Z30.46 [id number] [facility] [address] [facility] [address] [place] [address] 08/08/2018 10:12:15 08/08/2018 11:57:34 Gynecologic examination 75891066 Z01.419 Screening mammography 24 866099 Z12.31 [id number] MD Noreen Tolentinohalto (Adult Med) [address] [place] [address] 08/08/2018 13:50:15 08/11/2018 09:09:26 Adult health examination 545412404 Z00.01 healthy diet and exercise discussed with pt Smoker 04152990 F17.200 pt to try wellbutrin Mixed anxi ety and depressive disorder 511946707 F41.8 with sleep disturbanc esstart pt on trazodone hs with wellbutrin Obesity 454319815 E66.9 diet and exercise Umbilical hernia 6254948 07 K42.9 Refer to surgeonGo to ER if pain or N/V [id number] [facility] [address] [place] [address] 09/03/2018 14:41:43 09/04/2018 09:33:24 Herpes labialis 9769965 B00.1 on lower lips Umbilical hernia 9755606 07 K42.9 pt is seen by surgeon-aw aiting to have sx next monthGo to ER if pain or N/V [id number] MD Edilson Tolentino (Adult Med) [address] [place] [address] 11/18/2018 14:41:44 11/19/2018 08:48:03 Mixed anxiety and depressive disorder 330181632 F41.8 with insomniapt had normal sleep study in the past per pt .pt stopped taking trazodone hspt to increase wellbutrin 200 mg bidAdd Hydroxyzin e hs Hypothyroidism 65761152 E03.9 continue levothyrox in 25 mcg hs [id number] [facility] [address] [place] [address] 11/24/2018 09:49:31 11/25/2018 09:44:33 Mixed anxiety and depressive disorder 582682564 F41.8 with insomniapt had normal sleep study in the past per pt .pt stopped taking trazodone hspt ran out wellbutrin 200 mg bid -counselle d pt to take med as prescribed continue Hydroxyzin e hs Elevated blood-pressure reading without diagnosis of hypertension 044350930 R03.0 possibly due to anxietywil l reasses [id number] MD Noreen Tolentinohalto (Adult Med) [address] [place] [address] 01/28/2019 14:33:21 01/29/2019 09:16:07 Mixed anxiety and depressive disorder 038777256 F41.8 with insomniapt had normal sleep study in the past per pt .pt stopped taking trazodone hspt did not tolerate wellbutrin 200 mg bid( sweating )-taper and discontinu ept to start lexaprocon tinue Hydroxyzin e hs for now Hypothyroidism 05508615 E03.9 continue levothyrox ine 25 mcg hs Elevated blood-pressure reading without diagnosis of hypertension 984601287 R03.0 possibly due to anxiety/de pressionwi ll reassess [id number] MD Edilson Tolentino (Adult Med) [address] [place] [address] 03/02/2019 14:39:54 03/04/2019 09:58:51 Mixed anxiety and depressive disorder 369585670 F41.8 with insomnia .Improving on lexapro . pt had normal sleep study in the past per pt .pt stopped taking trazodone hspt did not tolerate wellbutrin .pt to increase lexapro 10mg bidcontinu e Hydroxyzin e hs for now Elevated blood-pressure reading without diagnosis of hypertension 888923858 R03.0 possibly due to anxiety/de pressionwi ll reassess Hypothyroidism 15721893 E03.9 continue levothyrox ine 25 mcg hs Spasm of back muscles 20 0393196 M62.830 back muscle crampsheat therapy [id number] [facility] [address] [place] [address] 05/13/2019 14:31:22 05/15/2019 14:02:28 Mixed anxiety and depressive disorder 691701262 F41.8 with insomnia .Improving on lexapro . pt had normal sleep study in the past per pt .pt stopped taking trazodone hspt did not tolerate wellbutrin continue Hydroxyzin e hs for now Hypothyroidism 76288357 E03.9 continue levothyrox ine 25 mcg daily Essential hypertension 83695157 I10 pt is willing to take medstart pt on hctz 12.5mg daily Acute bronchitis 0353641 2 J20.9 keep good hydrationr eturn to clinic if problem persists [id number] [facility] [address] [place] [address] 07/13/2019 11:32:59 07/14/2019 08:56:17 Essential hypertension 95481982 I10 change hctz to triam/hct Acute gastroenteritis 69 120777 K52.9 supportive care/ hand washing with soap and water.keep good hydrationw ork excuse today [id number] [facility] [address] [place] [address] 10/09/2019 09:11:48 10/12/2019 07:57:17 Mixed anxiety and depressive disorder 893353530 F41.8 with insomnia .fair control continue lexapro .Add abilify pt had normal sleep study in the past per pt .pt stopped taking trazodone hspt did not tolerate wellbutrin Essential hypertension 56024605 I10 continue triam/hct Hypothyroidism 64961232 E03.9 continue levothyrox ine 50 mcg daily [id number] MD Noreen Tolentinohalto (Adult Med) [address] [place] [address] 02/12/2020 08:22:54 02/22/2020 10:52:15 Essential hypertension 16985676 I10 continue triam/hct Hypothyroidism 97570019 E03.9 continue levothyrox ine 50 mcg daily Mixed anxi ety and depressive disorder 140855536 F41.8 fairly stable continue lexapro .-pt wants to continue lexapro for now -declined med change at this time.pt did not tolerate abilify ( nightmares ) pt had normal sleep study in the past per pt .pt stopped taking trazodone hspt did not tolerate wellbutrin Spasm of back muscles 20 8452339 M62.830 back muscle crampsheat therapy [id number] MD Edilson Tolentino (Adult Med) [address] [place] [address] 03/29/2020 08:36:09 03/30/2020 10:34:08 Acute pharyngitis 022583492 J02.9 hydration/ salt water gargle Renewal of prescription 155079166 Z76.0 [id number] NAUN MARTINEZ [address] [place] [address] 04/26/2020 10:28:12 04/27/2020 10:08:19 Suspected COVID-19 139281613 Z03.89 [id number] MD Edilson Tolentino (Adult Med) [address] [place] [address] 06/28/2020 09:27:42 06/29/2020 07:54:05 Backache 979299744 M54.9 pt to avoid bending and heavy lifting .back exercise /heat therapy [id number] MD Edilson Tolentino (Adult Med) [address] [place] [address] 07/22/2020 08:15:29 07/25/2020 13:53:03 Essential hypertension 47102760 I10 continue triam/hct Mixed anxi ety and depressive disorder 696913982 F41.8 fairly stable continue lexapro .pt did not tolerate abilify ( nightmares )pt had normal sleep study in the past per pt .pt stopped taking trazodone hspt did not tolerate wellbutrin Hypothyroidism 85371493 E03.9 continue levothyrox ine 50 mcg daily Renewal of prescription 368417487 Z76.0 [id number] MD Edilson Tolentino (Adult Med) [address] [place] [address] 10/07/2020 11:37:14 10/08/2020 11:01:54 Low back pain 357988614 M54.5 ice/back exercise Essential hypertension 55802563 I10 Elevated due to pain -reasses with f/u continue triam/hct Obesity 910404934 E66.9 diet and exercise [id number] MD Edilson Tolentino (Adult Med) [address] [place] [address] 10/21/2020 10:30:01 10/24/2020 12:37:18 Essential hypertension 62637601 I10 not well controlled continue triam/hct Add Verapamil Mixed anxi ety and depressive disorder 826067153 F41.8 fairly stable continue lexapro .pt did not tolerate abilify ( nightmares )pt had normal sleep study in the past per pt .pt stopped taking trazodone hspt did not tolerate wellbutrin Hypothyroidism 21398293 E03.9 continue levothyrox ine 50 mcg daily Seasonal a llergic rhinitis 380491365 J30.2 [id number] MD Noreen Tolentinohalto (Adult Med) [address] [place] [address] 10/31/2020 11:58:25 11/01/2020 10:20:58 Essential hypertension 40613296 I10 not well controlled continue triam/hct Added Verapamil recently Edema of l ower extremity 648582430 R60.0 possibly dependent edema - pt to wear compressio n stocking / elevate legs /low salt diet -loose wt if problem continues -consider to change verapamil [id number] MD Noreen Tolentinohalto (Adult Med) [address] [place] [address] 12/23/2020 09:28:34 12/27/2020 10:45:05 Essential hypertension 60277004 I10 improving pt said triam/hct is making her warm- change to losartnhct per pt's request continue Verapamil Mixed anxi ety and depressive disorder 833355082 F41.8 fairly stable continue lexapro .pt did not tolerate abilify ( nightmares )pt had normal sleep study in the past per pt .pt stopped taking trazodone hspt did not tolerate wellbutrin Hypothyroidism 42199203 E03.9 continue levothyrox ine 50 mcg daily [id number] [facility] [address] [place] [address] 02/24/2021 09:15:53 03/02/2021 12:24:45 Essential hypertension 86677878 I10 improving (pt said triam/hct is making her warm) -changed to losartnhct continue Verapamil Mixed anxi ety and depressive disorder 620672163 F41.8 fairly stable continue lexapro .pt did not tolerate abilify ( nightmares )pt had normal sleep study in the past per pt .pt stopped taking trazodone hspt did not tolerate wellbutrin Hypothyroidism 65020556 E03.9 continue levothyrox ine 50 mcg daily Obesity 933252931 E66.9 diet and exercise Renewal of prescription 548900861 Z76.0 [id number] [facility] [address] [place] [address] 05/26/2021 09:13:01 05/29/2021 08:52:52 Essential hypertension 34653005 I10 not well controlled (pt said triam/hct is making her warm) -pt to increase losartnhct 100/25 daily continue Verapamil Hypothyroidism 52898121 E03.9 continue levothyrox ine 50 mcg daily Mixed anxi ety and depressive disorder 060056223 F41.8 fairly stable continue lexapro .pt did not tolerate abilify ( nightmares )pt had normal sleep study in the past per pt .pt stopped taking trazodone hspt did not tolerate wellbutrin [id number] MD Noreen Tolentinohalto (Adult Med) [address] [place] [address] 08/04/2021 09:07:52 08/07/2021 07:19:04 Essential hypertension 07141750 I10 -improving (pt said triam/hct is making her warm) -pt to increase losartnhct 100/25 daily continue Verapamil Mixed anxi ety and depressive disorder 654044586 F41.8 fairly stable continue lexapro .pt did not tolerate abilify ( nightmares )pt had normal sleep study in the past per pt .pt stopped taking trazodone hspt did not tolerate wellbutrin Hypothyroidism 29852455 E03.9 continue levothyrox ine 50 mcg daily Obesity 741122330 E66.9 diet and exercise-p t wants to try phentermin e -discussed about risks and benifits- disucussed about glp1 as well - pt is willing to glp 1 [id number] MD Edilson Tolentino (Adult Med) [address] [place] [address] 12/29/2021 10:32:12 01/02/2022 08:06:03 Essential hypertension 83920423 I10 -noncompli ant with med -counselle d -home bp are good(pt said triam/hct is making her warm) -pt to continue losartnhct 100/25 daily continue Verapamil Hypothyroidism 81414468 E03.9 noncomplia nt with thyroid -counselle d-continue levothyrox ine 50 mcg daily Mixed anxi ety and depressive disorder 634262861 F41.8 fairly stable continue lexapro .pt did not tolerate abilify ( nightmares )pt had normal sleep study in the past per pt .pt stopped taking trazodone hspt did not tolerate wellbutrin Obesity 788988468 E66.9 diet and exercise-p t wants to try phentermin e -discussed about risks and benifits- discussed about glp1 as well - pt is willing to glp 1 Mixed hyperlipidemia 267 464488 E78.2 -discussed with [facility]- pt agreed to improve her lifestyle [id number] MD Edilson Tolentino (Adult Med) [address] [place] [address] 03/30/2022 11:21:51 04/02/2022 13:17:03 Essential hypertension 65030854 I10 -not well controlled (pt said triam/hct is making her warm) -pt to continue losartnhct 100/25 daily -pt to increase Verapamil Mixed anxi ety and depressive disorder [id number] F41.8 fairly stable continue lexapro .pt did not tolerate abilify ( nightmares )pt had normal sleep study in the past per pt .pt stopped taking trazodone hspt did not tolerate wellbutrin Mixed hyperlipidemia 267 022240 E78.2 -discussed with LSM- pt agreed to improve her lifestyle Hypothyroidism 58411989 E03.9 -continue levothyrox ine 50 mcg daily Obesity 265841803 E66.9 diet and exercise-p t wants to try phentermin e -discussed about risks and benefits- discussed about glp1 as well - pt did not start ozempic yet Influenza vaccination declined [id number] Z28.21 Renewal of prescription [id number] Z76.0 [id number] Fatimah Varghese MD [facility] (Adult Med) [address] [place] [address] 05/25/2022 09:49:48 05/30/2022 22:28:24 Essential hypertension 78146217 I10 -improving -pt did not take meds today(pt said triam/hct is making her warm) -pt to continue losartnhct 100/25 daily / Verapamil 240mg daily Mixed anxi ety and depressive disorder 843302675 F41.8 -not well controlled /more irritabili tycontinue lexapro-ad d [facility] ( [facility] )pt had normal sleep study in the past per pt .pt stopped taking trazodone hspt did not tolerate wellbutrin Mixed hyperlipidemia 267 371815 E78.2 -discussed with LSM- pt agreed to improve her lifestyle - will check labs Hypothyroidism 10089504 E03.9 -continue levothyrox ine 50 mcg daily Obesity 375711989 E66.9 diet and exercise- discussed about glp1 as well - pt is on ozempic yet [id number] JOANNA Kessler- Yessi [address] [facility] [address] [place] [address] 12/20/2022 14:51:49 12/24/2022 09:18:27 Gynecologic examination 13740759 Z01.419 1. Counseled regarding prevention of STD's , condom use and prevention . 2. Counseled regarding contracept carolyn options, risk factors and side effects. 3. Advised avoidance of tobacco, alcohol, and drugs . 4. Counseled regarding folic acid supplement ation, calcium needs and prevention of osteoporos is . 5. BSE reviewed and recommende d. 6. Follow up in one year or sooner if needed. Screening mammography 24 855758 Z12.31 Importance of yearly mammograms and sbe exam discussed with pt. Mammogram order given, pt verbalized understand ing. Morbid obesity 296119822 E66.01 Will refer to bariatric surgeon. [id number] MD Edilson Tolentino (Adult Med) [address] [place] [address] 01/18/2023 08:25:55 01/23/2023 14:33:16 Essential hypertension 54110037 I10 not well controlled due to noncomplia nt with med -counselle d(pt said triam/hct is making her warm) -pt to restart losartnhct 100/25 daily first pt to wait for to start Verapamil 240mg daily Mixed anxi ety and depressive disorder 354075521 F41.8 -pt declined meds /discussed about meditation and mindfulnes s-pt stopped taking [facility] ( nightmares )pt had normal sleep study in the past per pt .pt stopped taking trazodone hspt did not tolerate wellbutrin Hypothyroidism 37520708 E03.9 pt is noncomplia nt with med -continue levothyrox ine 50 mcg daily Mixed hyperlipidemia 267 141865 E78.2 -discussed with LSM- pt agreed to improve her lifestyle - will check labs Obesity 381679758 E66.9 diet and exercise- discussed about glp1 as well - pt is waiting to see bariatric surgeon for wt loss sx Patient no ncompliance - general 219290490 Z91.199 -stopped taking meds for 4 months /missed f/u- pt said she is going to go back on meds [id number] MD Edilson Tolentino (Adult Med) [address] [place] [address] 04/01/2023 11:21:46 04/02/2023 09:35:49 Upper respiratory infection 90794960 J06.9 -keep good hydrations alt water gargle Screening for malignant neoplasm of colon 054709585 Z12.11 Essential hypertension 10522607 I10 -improving (pt said triam/hct is making her warm) -pt restarted losartnhct 100/25 daily pt to hold Verapamil for now [id number] MD Noreen Tolentinohalto (Adult Med) [address] [place] [address] 05/10/2023 09:50:00 05/13/2023 09:30:49 Essential hypertension 82284305 I10 -improving (pt said triam/hct is making her warm) -pt restarted losartnhct 100/25 daily pt to hold Verapamil for now Mixed hyperlipidemia 267 907756 E78.2 -discussed with LSM- pt agreed to improve her lifestyle- continue statin Hypothyroidism 55941453 E03.9 -continue levothyrox ine 50 mcg daily Obesity 823467543 E66.9 diet and exercise- discussed about glp1 as well - pt is waiting to see bariatric surgeon for wt loss sx [id number] [facility] [address] [place] [address] 12/27/2023 08:32:16 01/06/2024 13:20:34 Essential hypertension 95132313 I10 -fairly stable(pt said triam/hct is making her warm) -pt to continue losartnhct 100/25 daily pt is off of Verapamil for now Mixed anxi ety and depressive disorder 775727987 F41.8 -pt declined meds /discussed about meditation and mindfulnes s-pt stopped taking lexapropt [facility] did not tolerate abilify ( nightmares )pt had normal sleep study in the past per pt .pt stopped taking trazodone hspt did not tolerate wellbutrin Mixed hyperlipidemia 267 373275 E78.2 -discussed with LSM- pt to increase atorvastat in 20mg daily Hypothyroidism 81325283 E03.9 -continue levothyrox ine 50 mcg daily Screening for malignant neoplasm of colon 256906018 Z12.11 Obesity 943184000 E66.9 diet and exercise- discussed about glp1 as well - pt is waiting to see bariatric surgeon for wt loss sxpt is requesting phentermin e for wt loss and pt was advised to try it for wtloss prior to sx - discussed about phentermin e and risks of taking it in her case- will try victoza with 340b [id number] CHRISSY Calhoun [address] OB [address] [facility] [place] [address] 05/28/2024 15:28:33 05/29/2024 08:00:21 Gynecologic examination 93374433 Z01.419 1. Counseled regarding prevention of STD's , condom use and prevention . 2. Counseled regarding contracept carolyn options, risk factors and side effects. 3. Advised avoidance of tobacco, alcohol, and drugs . 4. Counseled regarding folic acid supplement ation, calcium needs and prevention of osteoporos is . 5. BSE reviewed and recommende d. 6. Follow up in one year or sooner if needed. Screening mammography 24 734188 Z12.31 Importance of yearly mammograms and sbe exam discussed with pt. Mammogram order given, pt verbalized understand ing. Health Concerns Section Related Observation LastModified by Organization Detai ls LastModified Time None Recorded Concern Status LastModified by Organization Details LastModified Time None Recorded Advance Directives Directive N: Payers Encounter Date Sequence Insurance Name Policy Number Policy Welch Covered Member ID Welch Member ID Guarantor Name 01/18/2023 1 [employer] [place] ([place] [id number] 0003 Elinor Cevallos [id number] Elinor Cevallos 01/18/2023 2 *SELF PAY* [facility] acy Cevallos 04/01/2023 1 [employer] [place] [id number] 0003 Elinor Cevallos [id number] Elinor Cevallos 04/01/2023 2 *SELF PAY* [facility] acy Cevallos 05/10/2023 1 [employer] [place] [id number] 0003 Elinor Cevallos [id number] Elinor Cevallos 05/10/2023 2 *SELF PAY* [facility] acy Cevallos 12/27/2023 1 [employer] [place] [id number] 0003 Elinor Cevallos [id number] Elinor Cevallos 12/27/2023 2 *SELF PAY* [facility] acy Cevallos 05/28/2024 1 [employer] [place] [id number] 0003 Elinor Cevallos [id number] Elinor Cevallos 05/28/2024 2 *SELF PAY* [facility] haylee Cevallos Notes Date Note Type Note Provider Name and Address Organization Details Recorded Time 01/19/20 text/htm l Anxiety/DepressionReported bypatient.Quality:symptoms improved (fair control) Severity:denies suicidal ideations Duration:frequent Context:major life stressors(weight gain / son with issues at school);family problems(daughter with issues -drugs/prostitution);relations hip stress(broke up);bereavement(brother /friend/dogs);tobacco use; lives with /daughter / working at [employer]/ Associated Symptoms:denies homicidal ideations;anxiety(better);depr ession(feeling overwhelmed)Notes:pt stopped taking meds -does not want to take medsHyperlipidemiaReported bypatient.Type of hyperlipidemia:combined Control:not at goal Current Therapy:last LDL level: (161) Compliance:noncompliant with diet Complications:no coronary artery disease Risk Factors:hypertension;obesityHy pertension F/UReported bypatient.Associated Symptoms:no dizziness; no chest pain; no shortness of breath; no palpitations; no edema Lifestyle:regular exercise; limiting/avoiding salt Medications:no side effects from medication;not taking medications as directedObesityReported bypatient.Diagnosis Summary:diagnosis: obesity Context:no inhaled steroids; no oral steroids Associated Symptoms:depression or anger symptoms;hypothyroidism Co-morbidities:hypertension Lifestyle changes:motivated to continue lifestyle changes Nutrition:eats mostly healthy diet; restricting concentrated sugarsNotes:pt is planning to go for wt loss sx missed f/u /stopped taking meds for 3-4 months per pt Fatimah Varghese MD Attn: Accounting,[address] [place], [address], [facility] 01/18/2023 14:11:05 04/01/20 text/htm l Upper Respiratory SymptomsReported bypatient.Location:head; throat Quality:congested Severity:3-4 days Onset/Timing:gradual Context:no sick contacts Associated Symptoms:no shortness of breath; no wheezing; no fever;sore throat(ear pain) Fatimah Varghese MD Attn: Accounting,[address] [place], [address], [facility] 04/01/2023 15:53:23 05/10/20 23 text/htm l HyperlipidemiaReported bypatient.Type of hyperlipidemia:combined Control:not at goal Current Therapy:last LDL level: (186) Compliance:compliant; compliant with diet; exercises Complications:no coronary artery disease Risk Factors:hypertension;obesityHy pertension F/UReported bypatient.Associated Symptoms:no dizziness; no chest pain; no shortness of breath; no palpitations; no edema Lifestyle:regular exercise; limiting/avoiding salt Medications:taking medications as directed; no side effects from medicationObesityReported bypatient.Diagnosis Summary:diagnosis: obesity Context:no inhaled steroids; no oral steroids Associated Symptoms:depression or anger symptoms;hypothyroidism Co-morbidities:hypertension Lifestyle changes:motivated to continue lifestyle changes Nutrition:eats mostly healthy diet; restricting concentrated sugarsNotes:pt is planning to go for wt loss sx Fatimah Varghese MD Attn: Accounting,[address] [place], [address], [facility] 05/10/2023 14:03:45 12/27/19 24 text/htm l HyperlipidemiaReported bypatient.Type of hyperlipidemia:combined Control:not at goal Current Therapy:last LDL level: (186) Compliance:compliant; compliant with diet; exercises Complications:no coronary artery disease Risk Factors:hypertension;obesityHy pertension F/UReported bypatient.Associated Symptoms:no dizziness; no chest pain; no shortness of breath; no palpitations; no edema Lifestyle:regular exercise; limiting/avoiding salt Medications:taking medications as directed; no side effects from medicationObesityReported bypatient.Diagnosis Summary:diagnosis: obesity Context:no inhaled steroids; no oral steroids Associated Symptoms:depression or anger symptoms;hypothyroidism Co-morbidities:hypertension Lifestyle changes:motivated to continue lifestyle changes Nutrition:eats mostly healthy diet; restricting concentrated sugarsNotes:pt is planning to go for wt loss sx and seeing bariatric sx who recommends pt to loose around 40lbs prior to sx - pt is requesting phentermine -discussed about risks of taking in her case missed f/u Fatimah Varghese MD Attn: Accounting,[address] [place], [address], [facility] 12/27/2023 14:01:28 05/28/20 24 text/htm l Annual GYNReported bypatient.History:no gynecologic complaints Menstrual cycle:Normal menses Urinary symptoms:No hematuria; No incontinence Vulva:No genital lesion Vagina:Normal vaginal discharge Breast:No breast pain; No breast lump; No nipple discharge Current Contraception:Intrauterine device (iud) Sexual complaints:No sexual complaints; No pain during intercourse; Normal libido Menopausal Symptoms:No menopausal symptoms; Normal vaginal lubrication Psychological symptoms:No depression; No anxiety; No PMDD Preventive measures:Encourage self breast examination; Encourage regular exercise; Encourage no tobacco use; Encourage regular mammograms starting age 40; Followed with Q3 year pap smear and high risk HPV typing; Needs to schedule mammogram 49 yo fe here for annual- hx htn, hypothyroidism, anxiety, depression, obesity, high cholesterol, smoking- 07/11/18 mirena placed - last pap wnl 12/20/22- needs mammogram order Ellen Silverman MA null, [facility] 05/28/2024 16:19:54 OBGyn Episode No OBEpisode recorded.
--- OUTSIDE RECORDS SUMMARY | 2024-07-15 13:18 | XMS_ITS | Referral Summary ---
Author Organization [facility] Building [address] Address [address] [place] [address] Care Team Providers Care Senior Sas Developer Name Role Phone Fatimah Betancourt MD Primary Care Provider [phone] Allergies Active Allergy Reactions Criticality Noted Date Comments Azithromycin Vomiting Low 02/16/2016 Meperidine Rash Medium 02/16/2016 Morphine Vomiting Low 01/24/2023 Medications albuterol HFA (PROVENTIL HFA,VENTOLIN HFA,PROAIR HFA) 90 mcg/actuation inhaler INHALE 2 PUFFS 3 TIMES DAILY NEEDED 10/30/2022 Active levothyroxine (SYNTHROID) 50 mcg tablet Take 1 tablet (50 mcg total) by mouth daily Active losartan-hydroc hlorothiazide (HYZAAR) 100-25 mg per tablet Take 1 tablet by mouth daily 01/18/2023 Active triamcinolone (KENALOG) 0.1 % ointment PRN 08/18/2020 Active atorvastatin (LIPITOR) 10 mg tablet Take 2 tablets (20 mg total) by mouth daily 05/10/2023 Active Victoza 3-Kalin 0.6 mg/0.1 mL (18 mg/3 mL) injection INJECT 0.6 MG UNDER THE SKIN EVERY DAY 12/30/2023 Active Active Problems Problem Noted Date Diagnosed Date Heartburn 03/29/2023 Morbid obesity 01/24/2023 Assessment & Plan (01/24/2023 10:03 AM CDT): Given their past success the patient would be a good candidate for weight loss surgery. We have gone over options such as the bypass and sleeve gastrectomy. We have also discussed risks and benefits such as blood clots, staple line leak as well as new or worsening reflux symptoms. They are in understanding. During this time will have them seen by the dietitian and psych. As we get closer to the time of surgery we will set him up for an EGD to look for hiatal hernia, H pylori or other gastric pathology. We will see them back in 4 weeks. They are in understanding of the plan. We have gone over small frequent meals shooting for a goal calorie intake of around 1600 spread throughout 4-5 meals. We have discussed not eating late at night. We have discussed cardiovascular exercise. Greater than 15 minutes was spent in counseling the patient on diet and exercise with regards to her morbid obesity. Social History Tobacco Use Types Packs/Day Years Used Date Smoking Tobacco: Former Cigarettes 0.5 10 Tobacco Cessation:Counseling Given: Not Answered AUDIT-C Answer Date Recorded Q1: How often do you have a drink containing alc ohol? Monthly or less 04/23/2023 Q2: How many drinks containi ng alcohol do you have on a typical day when you are drinking? 1 or 2 04/23/2023 Q3: How often do you have si x or more drinks on one occasion? Never 04/23/2023 Personal Safety Answer Date Recorded Have you ever been in or are you currently in a harmful physical or emotional relationship or is someone making you feel afraid or unsafe? Denies 04/23/2023 Comments No Sex and Gender Information Value Date Recorded Sex Assigned at Not on file Legal Sex Female 6:59 PM NUTRITIONAL YEAST SUPERVISOR Gender Identity Not on file Sexual Orientation Not on file Last Filed Vital Signs Vital Sign Reading Time Taken Comments Blood Pressure 132/82 01/07/2024 9:27 AM CDT Pulse 80 01/07/2024 9:27 AM CDT Temperature 36.1 ??C (96.9 ??F) 01/07/2024 9:27 AM CD T Respiratory Rate 16 04/23/2023 2:55 PM NUTRITIONAL YEAST SUPERVISOR Oxygen Saturation 96% 01/07/2024 9:27 AM CDT Inhaled Oxygen Concentration - - Weight 140.4 kg (309 lb 8 oz) 01/07/2024 10:43 A M CDT Height 172.7 cm (5' 8 ) 01/07/2024 10:43 AM CDT Body Mass Index 47.06 01/07/2024 10:43 AM CDT Plan of Treatment Not on file Insurance [facility] Advance Directives For more information, please contact: [phone] * Full Code (Latest Code Status on File) Date Activated Date Inactivated Comments 04/23/2023 1:24 PM 04/23/2023 7:10 PM * Full Code Date Activated Date Inactivated Comments 04/23/2023 1:24 PM 04/23/2023 1:24 PM Care Teams Senior Sas Developer Relationship Specialty Start Date End Date Fatimah Betancourt MD [address] [place] [id number] PCP - General Internal Medicine 07/04/23
--- OUTSIDE RECORDS SUMMARY | 2024-07-15 13:18 | XMS_ITS | Clinical Summary ---
Author Organization [facility] Address [address] [place] [address] Phone Care Team Providers Care Overhead Garage Door Hanger Name Role Phone Fatimah Betancourt MD Primary Care Provider [phone] Allergies Active Allergy Reactions Criticality Noted Date Comments Azithromycin Unknown 02/16/2016 Meperidine Unknown 02/16/2016 Medications traZODone (DESYREL) 25 mg Tablet Take 50 mg by mouth nightly. Active buPROPion HCl (WELLBUTRIN PO) Take 150 mg by mouth 2 times daily. Active levothyroxine (SYNTHROID) 25 MCG Tablet Take 25 mcg by mouth daily. Active valACYclovir (VALTREX) 500 MG Tablet valacyclovir 500 mg tablet Take 1 tablet twice a day by oral route for 5 days. Active cyclobenzaprine (FLEXERIL) 10 MG Tablet Take 10 mg by mouth 3 times daily as needed. Active triamterene (DYRENIUM) 50 MG Capsule Take 25 mg by mouth daily. Active escitalopram (Lexapro) 20 MG Tablet Take 20 mg by mouth daily. Active aspirin 81 MG Chewable Tablet Take 81 mg by mouth daily. Active predniSONE (DELTASONE) 10 MG Tablet TAKE 3 TABLETS DAILY X3 DAYS THEN 2 TABLETS DAILY X3 DAYS THEN 1 TABLET DAILY X3 DAYS 18 Tablet 1 Active hydrOXYzine (VISTARIL) 25 MG Capsule Take 1 Capsule by mouth 3 times daily as needed for Itching. 20 Capsule 1 Active triamcinolone (KENALOG) 0.1 % Ointment Application Site: apply to affected area twice a day 60 g 1 Active Active Problems Problem Noted Date Diagnosed Date Umbilical hernia without obstruction and without gangrene 08/27/2018 Encounters Date Type Department Care Team Description 05/28/2024 Transcribe Orders [facility] Central Scheduling [address] [place] [address] Mayra Edwards APRN, AUDREY Encounter for screening mammogram for malignant neoplasm of breast (Primary Dx) from Last 3 Months Family History Medical History Relation Name Comments No Known Problems Brother Liver Cancer Father No Known Problems Maternal Grandfather Stroke Maternal Grandmother Heart Attack Mother Stroke Mother No Known Problems Other No Known Problems Paternal Grandfather No Known Problems Paternal Grandmother No Known Problems Sister Relation Name Status Comments Brother Father Maternal Grandfather Maternal Grandmother Mother Other Paternal Grandfather Paternal Grandmother Sister Social History Tobacco Use Types Packs/Day Years Used Date Smoking Tobacco: Former Cigarettes 0.3 3 Smokeless Tobacco: Never Tobacco Cessation:Ready to Q uit: Yes; Counseling Given: Yes Comments:last one 09/16/18 Alcohol Use Standard Drinks/Week Comments No 0 (1 standard drink = 0.6 oz pur e alcohol) Sexually Active Control Partners Comments Yes I.U.D. Male Comments No Sex and Gender Information Value Date Recorded Sex Assigned at Not on file Legal Sex Female 10:32 PM CDT Gender Identity Not on file Sexual Orientation Not on file Last Filed Vital Signs Vital Sign Reading Time Taken Comments Blood Pressure 134/82 10/19/2023 11:15 PM CDT Pulse 72 10/19/2023 11:15 PM CDT Temperature 36.8 ??C (98.2 ??F) 10/19/2023 9:42 PM CD T Respiratory Rate 17 10/19/2023 9:42 PM CDT Oxygen Saturation 97% 10/19/2023 11: 15 PM CDT Inhaled Oxygen Concentration - - Weight 137.3 kg (302 lb 11.1 oz) 10/19/2023 9:42 PM CDT Height 170.2 cm (5' 7 ) 10/19/2023 9:42 PM CDT Body Mass Index 47.41 10/19/2023 9:42 PM CDT Plan of Treatment Upcoming Encounters Date Type Department Care Team (Late st Contact Info) Description 07/27/2024 4:45 PM SEAT BUILDER Appointment [facility] Mammography [address] [place] [address] Mayra Edwards, DIONY, IT TRAINING SPECIALIST [address] [facility] [place] [address] Discharge Disposition: Discharged to home or Selfcare Health Maintenance Due Date Last Done Comments Hepatitis C Virus (HCV) Screening 1977 TdaP Immunization 1977 Hepatitis B Immunization (1 of 3 - 19+ 3-dose series) 02/19/1996 Pap Smear 1998 Cervical Cancer Screening (CCS) 2007 HPV/Cotest 2007 Discussion re Starting/Frequ ency of Mammograms 2017 Colonoscopy 2022 Colorectal Cancer Screening 2022 Influenza Immunization (#1) 2024 SARS-COV-2 Immunization () 02/09/2024 09/13/2020 Respiratory Syncytial Virus (RSV) Immunization (Adult) (1 - 1-dose 75+ series) 02/19/2052 Meningococcal Immunization (ACWY) Aged Out No longer eligible based on patient's age to complete this topic Pneumococcal Immunization Combined Aged Out No longer eligible based on patient's age to complete this topic Rotavirus Immunization Aged Out No lo nger eligible based on patient's age to complete this topic Medical Devices Implanted Type Area Outside Contractor Sales Device Identifier Shelf Expiration Date Model / Serial / Lot Mesh Surgical Ventralex 3.2in Umbilical - [id number] Implanted:Qty : 1 on 09/15/2018 by Song Denny MD at [facility] IMPLANT N/A: Umbilical CR BARD / DAVOL 02/04/2021 [id number] / [id number] / [id number] Insurance MEDICAID [employer] Care Teams Overhead Garage Door Hanger Relationship Specialty Start Date End Date Fatimah Betancourt MD [address] [place] [address] PCP - General Internal Medicine 09/09/18
--- OUTSIDE RECORDS SUMMARY | 2024-07-15 13:18 | XMS_ITS | Clinical Summary ---
Author Organization [facility] Address [address] [place] [address] Care Team Providers Care Biodiesel Engineering Manager Name Role Phone Fatimah Betancourt MD Primary Care Provider [phone] Allergies Active Allergy Reactions Criticality Noted Date [...] exercise with regards to her morbid obesity. Surgical History Surgery Date Site/Laterality Comments SECTION 06/10/1997 - 06/09/1998 SECTION 06/10/2007 - 06/09/2008 HERNIA REPAIR 06/10/2018 - 06/09/2019 umbilical Medical History Medical History Date Comments Morbid obesity (HCC) Hypertension Thyroid disease Borderline diabetes Family History Medical History Relation Name Comments Cancer Father liver cancer Diabetes Father Hypertension Father Alcohol abuse Mother Heart disease Mother Mental illness Mother Obesity Mother Transient ischemic attack Mother Relation Name Status Comments Father Mother Social History Tobacco Use Types Packs/Day Years [...] on file Legal Sex Female 6:59 PM [employer] Gender Identity Not on file Sexual Orientation Not on file Obstetrics History Last Filed Vital Signs Vital Sign Reading Time Taken Comments Blood Pressure 132/82 01/07/2024 9:27 AM CDT Pulse 80 01/07/2024 9:27 AM CDT Temperature 36.1 ??C (96.9 ??F) 01/07/2024 9:27 AM CD T Respiratory Rate 16 04/23/2023 2:55 PM [employer] Oxygen Saturation 96% 01/07/2024 9:27 AM CDT Inhaled Oxygen Concentration - - Weight 140.4 kg (309 lb 8 oz) 01/07/2024 10:43 A M CDT Height 172.7 cm (5' 8 ) 01/07/2024 10:43 AM CDT Body Mass Index 47.06 01/07/2024 10:43 AM CDT Plan of Treatment Health Maintenance Due Date Last Done Comments Breast Cancer Screening-Mammogram 1977 Cervical Cancer Screening 1977 Colon Cancer Screening-Colonoscopy 1977 Depression Screening 1977 Hepatitis C Screening 1977 DTaP/Tdap/Td Vaccine (1 - Tdap) 02/19/1988 Hepatitis B Screening 1995 Regular Well Visit/Exam 18-64 1995 Covid-19 Vaccine (2 - 2023-2 5 season) 2024 09/13/2020 Influenza Vaccine (#1) 2024 Pneumococcal vaccine <65 Aged Out No longer eligible based on patient's age to complete this topic Insurance [facility] Advance Directives For more information, please contact: [phone] * Full Code (Latest Code Status on File) Date Activated Date Inactivated Comments 04/23/2023 1:24 PM 04/23/2023 7:10 PM * Full Code Date Activated Date Inactivated Comments 04/23/2023 1:24 PM 04/23/2023 1:24 PM Care Teams Biodiesel Engineering Manager Relationship Specialty Start Date End Date Fatimah Betancourt MD [address] [place] [address] [place] [id number] PCP - General Internal Medicine 07/04/23
== END 2024-07-15 12:45 | disposition home or self-care (01) ==
PROVIDERS: Emergency Provider Registered Nurse; PCP Internal Medicine
DX: H65.01 Acute serous otitis media, right ear (principal); E78.5 Hyperlipidemia, unspecified; I10 Essential (primary) hypertension; E03.9 Hypothyroidism, unspecified; Z87.891 Personal history of nicotine dependence
CPT/HCPCS: 99213; G0463